=== PATIENT | male | born 1940 | race Caucasian/White ===

== ENCOUNTER 2019-05-12 11:40 | Emergency (ER) | payer OTHER, BC ==
[2019-05-12] MEDS ORDERED: NA CHLORIDE 0.9% 2,000 ML ONE (11:47)
[2019-05-12 12:04] LABS: Arterial Blood Carboxyhemoglob 0.8 % (0-1.5); Blood Gas Oxyhemoglobin 98.1 % (94-97); Blood O2 Saturation 99.4 % (92-98.5)
[2019-05-12 12:04] LABS: Absolute Lymphocytes (CBC) 0.8 K/uL (0.7-4.9); Basophils % 0.3 % (0-1.3); Hematocrit 39.6 % (39.6-49.0); Lymphocytes % 5.7 % (15.3-44.8); MPV 8.8 fL (7.6-11.3); RBC Red Blood Cell Count 4.21 M/uL (4.33-5.43)
[2019-05-12 12:08] LABS: Protime INR 0.91
[2019-05-12 12:22] LABS: ALT/SGPT 20 U/L (12-78); AST/SGOT 16 U/L (15-37); Alkaline Phosphatase 68 U/L (45-117); BUN Blood Urea Nitrogen 12 mg/dL (7-18); Bicarbonate 30 mmol/L (21-32); Bilirubin Direct 0.2 mg/dL (0-0.2); Bilirubin Total 0.8 mg/dL (0.2-1.0); CKMB Creatine Kinase MB 2.8 ng/mL (0.3-3.6); Creatine Phosphokinase 78 U/L (39-308); Glucose Level 147 mg/dL (74-106); Lipase 220 U/L (73-393); Potassium 3.6 mmol/L (3.5-5.1); Protein, Total 7.1 g/dL (6.4-8.2); Sodium Level 136 mmol/L (136-145); Troponin (Emerg Dept Use Only) < 0.02 ng/mL (0.0-0.045)
[2019-05-12 12:56] LABS: Urine Blood 3+ (NEG); Urine Glucose NEGATIVE (NEG); Urine Protein TRACE (NEG)
[2019-05-12 13:06] LABS: Urine Bacteria <20 /HPF (NONE SEEN); Urine Culture Reflex Order NOT NEEDED
--- NOTE | 2019-05-12 13:09 | RAD REPORT ---
EXAM DESCRIPTION: Alda Single View05/12/2019 12:23 pm CLINICAL HISTORY: Shortness of breath COMPARISON: none FINDINGS: Lungs are hyperaerated. The lungs appear clear of acute infiltrate. The heart is normal size IMPRESSION: Hyperaerated lungs without visualization acute abnormality
[2019-05-12 13:37] LABS: Blood Morphology Comment NOT SEEN (NOT SEEN); Platelet Estimate ADEQ; Urine White Blood Cell Casts OK
--- NOTE | 2019-05-12 16:27 | EKG ---
Test Date: 2019-05-12 Test Time: 12:15:46 Violin Mechanic: CRISTOFER MEASUREMENT RESULTS: Intervals: Rate: 87 AK: 164 QRSD: 72 QT: 348 QTc: 418 Morley: P: 62 AK: 164 QRS: 88 T: 64 INTERPRETIVE STATEMENTS: Sinus rhythm with marked sinus arrhythmia with frequent premature ventricular complexes Otherwise normal ECG No previous ECG available for comparison Electronically Signed On 05-12-19 16:25:35 CDT by Isma Schaefer
[2019-05-12] MEDS ORDERED: D5 0.45 NS 1,000 ML IV ONE (17:29)
--- NOTE | 2019-05-12 17:51 | ER ---
Nurse's Notes [facility] Name: Julian Henriquez Age: 78 yrs Sex: Male : 1940 Arrival Date: 05/12/2019 Time: 11:43 Bed 4 Private MD: Diagnosis: Acute respiratory failure with hypoxia Presentation: 05/12 11:39 Presenting complaint: EMS states: increased dyspnea that has been ongoing. Has been sv seen for neuromuscular disorders and they are trying to figure out what is going on with him. 25 lb weight loss since Oct. Pt was 70% RA and placed on 100% NRB O2 sat up to 88%. BP 138/76 HR-90 ETCO2-28. Transition of care: patient was not received from another setting of care. Onset of symptoms was 2018. Risk Assessment: Do you want to hurt yourself or someone else? Patient reports no desire to harm self or others. Initial Sepsis Screen: Does the patient meet any 2 criteria? RR > 20 per min. HR > 90 bpm. Yes Does the patient have a suspected source of infection? No. Patient's initial sepsis screen is negative. Care prior to arrival: IV initiated. 20 GA, in the right antecubital area, Oxygen administered. via a non-rebreather mask. 11:39 Method Of Arrival: EMS: [facility] sv 11:44 Acuity: TEODORA 1 sv Triage Assessment: 11:39 General: Appears in no apparent distress. comfortable, slender, emaciated, sv malnourished, cachectic, Behavior is calm, cooperative, appropriate for age. Pain: Denies pain. Neuro: Level of Consciousness is awake, alert, obeys commands, Oriented to person, place, time, situation, Weakness in bilateral arm(s) leg(s) Reports difficulty swallowing weakness. Cardiovascular: Patient's skin is warm and dry. Rhythm is sinus tachycardia Chest pain is denied. Respiratory: Reports shortness of breath at rest on exertion labored breathing Airway is patent Respiratory effort is even, unlabored, Respiratory pattern is regular, symmetrical, Onset: The symptoms/episode began/occurred gradually, the patient has severe shortness of breath. Derm: Skin is normal. Musculoskeletal: Range of motion: intact in all extremities. Historical: - Allergies: 12:15 No Known Allergies; sv - Home Meds: 12:15 eye drops [Active]; sv - PMHx: 12:15 prostate cancer; Glaucoma; sv - Immunization history:: Adult Immunizations up to date. - Social history:: Smoking status: Patient/guardian denies using tobacco. - Ebola Screening: : No symptoms or risks identified at this time. Screenin:17 Abuse screen: Denies threats or abuse. Denies injuries from another. Nutritional sv screening: On high calorie Difficulty chewing/swallowing? Yes Had unintentional weight loss of 10 pounds or more. Intervention for positive screen: ED Physician notified. Tuberculosis screening: No symptoms or risk factors identified. Fall Risk No fall in past 12 months (0 pts). Secondary diagnosis (15 points) impaired mobility, IV access (20 points). Ambulatory Aid- None/Bed Rest/Nurse Assist (0 pts). Gait- Weak (10 pts.). Mental Status- Oriented to own ability (0 pts). Total Ledbetter Fall Scale indicates High Risk Score (45 or more points). Fall prevention measures have been instituted. Side Rails Up X 2 Placed Close to Nursing Station Frequent Obs/Assessments Occuring Family Present and informed to notify staff if the need to leave the bedside As available patient and family educated on Fall Prevention Program and Strategies. Assessment: 11:43 Reassessment: Irena RT at bedside and pt placed on BIPAP. sv 12:00 Reassessment: Patient appears in no apparent distress at this time. Patient and/or sv family updated on plan of care and expected duration. Pain level reassessed. Patient is alert, oriented x 3, equal unlabored respirations, skin warm/dry/pink. 12:46 Reassessment: Patient appears in no apparent distress at this time. sg 14:00 Reassessment: Patient appears in no apparent distress at this time. Patient and/or sv family updated on plan of care and expected duration. Pain level reassessed. Patient is alert, oriented x 3, equal unlabored respirations, skin warm/dry/pink. 15:00 Reassessment: Patient appears in no apparent distress at this time. Patient and/or sv family updated on plan of care and expected duration. Pain level reassessed. Patient is alert, oriented x 3, equal unlabored respirations, skin warm/dry/pink. 16:10 Reassessment: Patient appears in no apparent distress at this time. Patient and/or sv family updated on plan of care and expected duration. Pain level reassessed. Patient is alert, oriented x 3, equal unlabored respirations, skin warm/dry/pink. Family at the bedside. Diego PALMA speaking with them and the pt. 17:20 Reassessment: Patient appears in no apparent distress at this time. Patient and/or sv family updated on plan of care and expected duration. Pain level reassessed. Patient is alert, oriented x 3, equal unlabored respirations, skin warm/dry/pink. 18:31 Reassessment: Patient appears in no apparent distress at this time. Patient and/or sv family updated on plan of care and expected duration. Pain level reassessed. Patient is alert, oriented x 3, equal unlabored respirations, skin warm/dry/pink. Report given to Parveen from EMS. Vital Signs: 11:42 BP 129 / 97; Pulse 107; Resp 28; Pulse Ox 76% on R/A; Pain 0/10; sv 11:46 Weight 51.26 kg; hb 11:50 Temp 97.9; sg 13:39 BP 136 / 101; Pulse 87 MON; Resp 26; Pulse Ox 95% on BiPAP; sv 14:07 BP 127 / 67; Pulse 78; Resp 28; Pulse Ox 95% on BiPAP; sv 14:59 BP 130 / 84; Pulse 77; Resp 20; Pulse Ox 99% on 35% BiPAP; sv 15:45 BP 95 / 57; Pulse 68 MON; Resp 18; Pulse Ox 99% on 35% BiPAP; sv 16:08 BP 130 / 88; Pulse 83; Resp 20; Pulse Ox 100% on 35% BiPAP; sv 17:35 BP 105 / 54; Pulse 72; Resp 20; Pulse Ox 100% on 35% BiPAP; sv 18:16 BP 97 / 68; Pulse 78 MON; Resp 16; Pulse Ox 100% on 35% BiPAP; sv 13:39 Sinus Rhythm with Occasional PVCs sv 15:45 Sinus Rhythm with Occasional PVCs sv 18:16 Sinus Rhythm with Occasional PVCs sv 14:59 rate-16, 14/7 sv ED Course: 11:39 Maintain EMS IV. Dressing intact. Site clean \T\ dry. Gauge \T\ site: 20G R AC. sv 11:40 bus monitor on. Pulse ox on. NIBP on. Head of bed elevated. sv 11:40 Initial lab(s) drawn, by ED staff, sent to lab. First set of blood cultures drawn by ED sv staff. Inserted saline lock: 20 gauge in left forearm, using aseptic technique. ,using aseptic technique. done by Rudolph ESCOTO Blood collected. 11:43 Patient arrived in ED. sv 11:43 Carolynn Kelley RN is Primary Nurse. sv 11:44 Triage completed. sv 11:44 Diego Holland PA is PHCP. jr8 11:44 Laurent Drummond MD is Attending Physician. jr8 11:45 Arm band placed on. sv 11:45 Patient has correct armband on for positive identification. Placed in gown. Bed in low sv position. Side rails up X2. 11:55 Second set of blood cultures drawn by ED staff. sv 12:22 X-ray completed. Portable x-ray completed in exam room. Patient tolerated procedure mh1 well. 12:26 Chest Single View XRAY In Process Unspecified. EDMS 12:43 Straight cath inserted, using sterile technique, 14 Fr. Specimen obtained. Returned sg jennifer urine. Patient tolerated well. 15:20 Repeat lab(s) drawn. by me, sent to lab. Lactate level sent. sg 18:16 No provider procedures requiring assistance completed. Patient transferred, IV remains sv in place. intact. 18:33 BIPAP Sent. sv Administered Medications: 12:00 Drug: NS 0.9% (30 ml/kg) 30 ml/kg Route: IV; Rate: bolus; Site: left forearm; sv 14:00 Follow up: Response: No adverse reaction; IV Status: Completed infusion; IV Intake: sv 1500ml 17:30 Drug: D5-1/2 NS 1000 ml Route: IV; Rate: 100 ml/hr; Site: left forearm; sg 18:33 Follow up: Response: No adverse reaction; IV Status: Infusion continued upon transfer sv Intake: 14:00 IV: 1500ml; Total: 1500ml. sv Output: 12:44 Urine: 100ml (Straight Cath); Total: 100ml. sg 15:15 Urine: 200ml (Voided); Total: 300ml. sg Outcome: 17:50 ER care complete, transfer ordered by . jr8 18:16 Transferred by ground EMS to [facility], Transfer form completed. sv X-rays sent w/ patient. Note: Report given to Miguel ESCOTO at [facility] 18:16 Condition: stable 18:16 Instructed on the need for transfer. 18:34 Patient left the ED. sv Signatures: Dispatcher [employer] EDCarolynn Hernandez RN RN Rudolph Rayo RN RN Bia Fenton 1 Diego Holland PA PA 8 Denae Donald RN RN Corrections: (The following items were deleted from the chart) 13:40 11:49 BP 129 / 97; Pulse 107bpm; Resp 28bpm; Pulse Ox 76% RA; Pain 0/10; sv sv 18:32 13:39 BP 136 / 101; Pulse 87bpm; Resp 26bpm; Pulse Ox 95% BiPAP; sv sv 18:32 15:45 BP 95 / 57; Pulse 68bpm; Resp 18bpm; Pulse Ox 99% 02 35% BiPAP; sv sv 18:32 18:16 BP 97 / 68; Pulse 78bpm; Resp 16bpm; Pulse Ox 100% 02 35% BiPAP; sv sv
--- NOTE | 2019-05-12 17:52 | EDPHYS ---
Physician Documentation [facility] Name: Julian Henriquez Age: 78 yrs Sex: Male : 1940 Arrival Date: 05/12/2019 Time: 11:43 Bed 4 Private MD: ED Physician Laurent Drummond HPI: 05/12 12:17 This 78 yrs old Male presents to ER via EMS with complaints of Breathing jr8 Difficulty. 12:17 The patient has shortness of breath at rest. Onset: The symptoms/episode began/occurred jr8 gradually, 2 day(s) ago, and became worse and became persistent. Duration: The symptoms are continuous. The patient's shortness of breath has no apparent modifying factors. Associated signs and symptoms: Pertinent positives: non-productive cough. Severity of symptoms: At their worst the symptoms were moderate in the emergency department the symptoms are unchanged. The patient has experienced similar episodes in the past, a few times. The patient has been recently seen by a physician:. Patient has been seen by [facility] for ongoing testing for concern for unknown neuromuscular condition. Stated that over the past year has been having slow decline which included numbness in feet, general weakness, trouble swallowing, trouble breathing, and loss of weight. Came to ED today for worsening of breathing . Historical: - Allergies: 12:15 No Known Allergies; sv - Home Meds: 12:15 eye drops [Active]; sv - PMHx: 12:15 prostate cancer; Glaucoma; sv - Immunization history:: Adult Immunizations up to date. - Social history:: Smoking status: Patient/guardian denies using tobacco. - Ebola Screening: : No symptoms or risks identified at this time. ROS: 15:33 Eyes: Negative for injury, pain, redness, and discharge, ENT: Negative for injury, jr8 pain, and discharge, Neck: Negative for injury, pain, and swelling, Cardiovascular: Negative for chest pain, palpitations, and edema, Abdomen/GI: Negative for abdominal pain, nausea, vomiting, diarrhea, and constipation, Back: Negative for injury and pain, MS/Extremity: Negative for injury and deformity, Skin: Negative for injury, rash, and discoloration, Neuro: Negative for headache, weakness, numbness, tingling, and seizure. 15:33 Respiratory: Positive for dyspnea on exertion, shortness of breath. Exam: 15:33 Eyes: Pupils equal round and reactive to light, extra-ocular motions intact. Lids and jr8 lashes normal. Conjunctiva and sclera are non-icteric and not injected. Cornea within normal limits. Periorbital areas with no swelling, redness, or edema. ENT: Nares patent. No nasal discharge, no septal abnormalities noted. Tympanic membranes are normal and external auditory canals are clear. Oropharynx with no redness, swelling, or masses, exudates, or evidence of obstruction, uvula midline. Mucous membranes moist. Neck: Trachea midline, no thyromegaly or masses palpated, and no cervical lymphadenopathy. Supple, full range of motion without nuchal rigidity, or vertebral point tenderness. No Meningismus. Cardiovascular: Regular rate and rhythm with a normal S1 and S2. No gallops, murmurs, or rubs. Normal PMI, no JVD. No pulse deficits. Abdomen/GI: Soft, non-tender, with normal bowel sounds. No distension or tympany. No guarding or rebound. No evidence of tenderness throughout. Back: No spinal tenderness. No costovertebral tenderness. Full range of motion. Skin: Warm, dry with normal turgor. Normal color with no rashes, no lesions, and no evidence of cellulitis. MS/ Extremity: Pulses equal, no cyanosis. Neurovascular intact. Full, normal range of motion. Neuro: Awake and alert, GCS 15, oriented to person, place, time, and situation. Cranial nerves II-XII grossly intact. Motor strength 5/5 in all extremities. Sensory grossly intact. Cerebellar exam normal. Normal gait. 15:33 Respiratory: mild respiratory distress is noted, Respirations: labored breathing, tachypnea, Breath sounds: rhonchi, that are mild, are heard in the right upper lobe, left upper lobe, left posterior upper lobe and right posterior upper lobe. Vital Signs: 11:42 BP 129 / 97; Pulse 107; Resp 28; Pulse Ox 76% on R/A; Pain 0/10; sv 11:46 Weight 51.26 kg; hb 11:50 Temp 97.9; sg 13:39 BP 136 / 101; Pulse 87 MON; Resp 26; Pulse Ox 95% on BiPAP; sv 14:07 BP 127 / 67; Pulse 78; Resp 28; Pulse Ox 95% on BiPAP; sv 14:59 BP 130 / 84; Pulse 77; Resp 20; Pulse Ox 99% on 35% BiPAP; sv 15:45 BP 95 / 57; Pulse 68 MON; Resp 18; Pulse Ox 99% on 35% BiPAP; sv 16:08 BP 130 / 88; Pulse 83; Resp 20; Pulse Ox 100% on 35% BiPAP; sv 17:35 BP 105 / 54; Pulse 72; Resp 20; Pulse Ox 100% on 35% BiPAP; sv 18:16 BP 97 / 68; Pulse 78 MON; Resp 16; Pulse Ox 100% on 35% BiPAP; sv 13:39 Sinus Rhythm with Occasional PVCs sv 15:45 Sinus Rhythm with Occasional PVCs sv 18:16 Sinus Rhythm with Occasional PVCs sv 14:59 rate-16, 14/7 sv MDM: 11:44 Patient medically screened. [facility] 15:33 Data reviewed: vital signs, nurses notes, lab test result(s), EKG, radiologic studies, jr8 plain films. Data interpreted: Pulse oximetry: on room air is 99 %. Interpretation: normal. Counseling: I had a detailed discussion with the patient and/or guardian regarding: the historical points, exam findings, and any diagnostic results supporting the discharge/admit diagnosis, lab results, radiology results. ED course: Called neurologist for second time to be paged to ED for consult. Awaiting call back . 16:12 ED course: was unable to reach patients own neurologist. Called [facility] for jr8 transfer. Accepted patient . 17:48 ED course: Patient will now be an ED to ED acceptance to [facility]. Awaiting charge jr8 nurse at that facility to accept . 05/12 11:45 Order name: ABG 05/12 11:45 Order name: Basic Metabolic Panel; Complete Time: 12:47 05/12 11:45 Order name: Blood Culture Adult (2) [facility] 05/12 11:45 Order name: CBC with Diff; Complete Time: 13:45 05/12 11:45 Order name: Ckmb; Complete Time: 12:47 [facility] 05/12 11:45 Order name: CPK; Complete Time: 12:47 [facility] 05/12 11:45 Order name: Lactate; Complete Time: 12:47 [facility] 05/12 11:45 Order name: LFT's; Complete Time: 12:47 05/12 11:45 Order name: Lipase; Complete Time: 12:47 05/12 11:45 Order name: Procalcitonin; Complete Time: 12:47 05/12 11:45 Order name: Protime (+inr); Complete Time: 12:11 05/12 11:45 Order name: Ptt, Activated; Complete Time: 12:11 05/12 11:45 Order name: Troponin (emerg Dept Use Only); Complete Time: 12:47 05/12 11:45 Order name: Urine Microscopic Only; Complete Time: 13:13 05/12 11:45 Order name: Chest Single View XRAY; Complete Time: 13:13 05/12 11:45 Order name: Accucheck; Complete Time: 12:10 05/12 11:45 Order name: Cardiac monitoring; Complete Time: 12:10 05/12 11:45 Order name: EKG - Nurse/Tech; Complete Time: 12:16 05/12 11:45 Order name: IV Saline Lock - Large Bore; Complete Time: 12:10 05/12 11:45 Order name: Labs collected and sent; Complete Time: 12:10 05/12 11:45 Order name: O2 Per Protocol; Complete Time: 12:10 05/12 11:45 Order name: O2 Sat Monitoring; Complete Time: 12:10 05/12 12:41 Order name: Glucose, Ancillary Testing; Complete Time: 12:47 EDMS 05/12 12:53 Order name: Urine Dipstick--Ancillary (enter results); Complete Time: 13:07 ms 05/12 13:38 Order name: CBC Smear Scan; Complete Time: 13:45 EDMS 05/12 15:51 Order name: Lactate Sepsis 2 HR Follow-up; Complete Time: 15:51 EDMS 05/12 16:12 Order name: EKG Electrocardiogram; Complete Time: 16:13 EDMS 08 18:10 Order name: BIPAP 05/12 11:45 Order name: Urine Dipstick-Ancillary (obtain specimen); Complete Time: 12:49 8 05/12 12:49 Order name: Straight Cath; Complete Time: 12:49 sg Administered Medications: 12:00 Drug: NS 0.9% (30 ml/kg) 30 ml/kg Route: IV; Rate: bolus; Site: left forearm; sv 14:00 Follow up: Response: No adverse reaction; IV Status: Completed infusion; IV Intake: sv 1500ml 17:30 Drug: D5-1/2 NS 1000 ml Route: IV; Rate: 100 ml/hr; Site: left forearm; sg 18:33 Follow up: Response: No adverse reaction; IV Status: Infusion continued upon transfer sv Disposition: 05/13 08:10 Co-signature as Attending Physician, Laurent Drummond MD I agree with the assessment and kdr plan of care. Disposition: 05/12/19 17:[address] [facility]. Diagnosis is Acute respiratory failure with hypoxia. - Reason for transfer: Higher level of care. - Accepting physician is [facility]. - Condition is Fair. - Problem is new. - Symptoms have improved. Signatures: Dispatcher [employer] Carolynn Lomas RN RN Rudolph Rayo RN RN sg Rittger, Kevin, MD MD [facility] Diego Holland PA PA jr8 Corrections: (The following items were deleted from the chart) 05/12 18:34 17:50 05/12/2019 17:[address] [facility]. Diagnosis is sv Acute respiratory failure with hypoxia. Reason for transfer: Higher level of care. Accepting physician is [facility]. Condition is Fair. Problem is new. Symptoms have improved. jr8
== END 2019-05-12 18:34 | disposition short-term general hospital (02) ==
LOC: ER 11:40
DX: J96.01 Acute respiratory failure with hypoxia (principal); Z85.46 Personal history of malignant neoplasm of prostate
CPT/HCPCS: 96365; 96361; 93005; 87040 ×2; 85025; 80048; 36415; 82550; 85610; 82962; 80076; 83605 ×2; 85730; 84484; 82553; 83690; 84145; 71045; 82805; 94660; 51702; 99291; 99292; 96366; J7030; 81003; 81015; 96360

== ENCOUNTER 2019-05-20 22:23 | Inpatient (IN) | payer OTHER, BC ==
--- OUTSIDE RECORDS SUMMARY | 2019-05-20 22:26 | XMS REPORT | Clinical Summary ---
:1940 Author Organization [facility] Address [address] [place] [address] Care Team Providers Name Role Phone Unavailable Primary Care Provider Unavailable Allergies No Known Allergies Medications Medication Sig Dispensed Refills Start Date End Date Status docusate sodium Take 1 capsule 10 capsule 0 05/18/2019 05/28/2019 Active (COLACE) 100 MG (100 mg total) capsule by mouth 2 (two) times daily for 10 days. polyethylene glycol Take 17 g by 14 each 0 05/18/2019 Active (GLYCOLAX) 17 gram mouth daily as packet needed. amoxicillin-clavulan Take 1 tablet 12 tablet 0 05/20/2019 05/26/2019 Active ate (AUGMENTIN) by mouth every 875-125 mg per 12 (twelve) tablet hours for 6 days. Lactobacillus Take 1 tablet 0 05/20/2019 05/26/2019 Active acidoph-L.bulgar by mouth 2 (FLORANEX) 1 million (two) times cell Tab per tablet daily for 6 days. timolol (BETIMOL) 1 drop 2 (two) 0 Suspended 0.5 % ophthalmic times daily. solution cetirizine (ZYRTEC) Take 10 mg by 0 Suspended 10 MG tablet mouth daily. 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 Monthly or less 05/13/2019 How many drinks containing alcohol do you have on a 1 or 2 05/13/2019 typical day when you are drinking? How often do you have six or more drinks on one Never 05/13/2019 occasion? Sex Assigned at Date Recorded Not on file Job Start Date Occupation Industry Not on file Not on file Not on file Travel History Travel Start Travel End No recent travel history available. Last Filed Vital Signs Vital Sign Reading Time Taken Blood Pressure 120/65 05/20/2019 4:00 PM CDT Pulse 83 05/20/2019 4:00 PM CDT Temperature 36.9 C (98.5 F) 05/20/2019 4:00 PM CDT Respiratory Rate 18 05/20/2019 4:00 PM CDT Oxygen Saturation 91% 05/20/2019 4:00 PM CDT Inhaled Oxygen Concentration 36% 05/19/2019 7:20 PM CDT Weight 52.6 kg (115 lb 14.4 oz) 05/20/2019 6:00 AM CDT Height 167.6 cm (5' 6") 05/12/2019 8:01 PM CDT Body Mass Index 18.71 05/20/2019 6:00 AM CDT Plan of Treatment Not on file Procedures The patient is currently admitted. The information in this section might not be complete until the patient is discharged. Procedure Name Priority Date/Time Associated Comments Diagnosis XR CHEST 1 VIEW LA 05/19/2019 10:16 Results for this PORTABLE/BEDSIDE AM CDT procedure are in the results section. CBC W/PLT COUNT & AUTO Routine 05/19/2019 4:17 Results for this DIFFERENTIAL AM CDT procedure are in the results section. BASIC METABOLIC PANEL Routine 05/19/2019 4:17 Results for this (7) AM CDT procedure are in the results section. CBC W/PLT COUNT & AUTO Routine 05/19/2019 4:17 Results for this DIFFERENTIAL AM CDT procedure are in the results section. POCT-GLUCOSE METER Routine 05/15/2019 5:13 Results for this PM CDT procedure are in the results section. XR CHEST 1 VIEW STAT 05/15/2019 1:05 Results for this PORTABLE/BEDSIDE AM CDT procedure are in the results section. POCT-GLUCOSE METER Routine 05/14/2019 5:03 Results for this PM CDT procedure are in the results section. CBC W/PLT COUNT & AUTO Routine 05/14/2019 4:22 Results for this DIFFERENTIAL AM CDT procedure are in the results section. BLOOD GAS, VENOUS Routine 05/14/2019 4:22 Results for this AM CDT procedure are in the results section. PHOSPHORUS Routine 05/14/2019 4:22 Results for this AM CDT procedure are in the results section. MAGNESIUM Routine 05/14/2019 4:22 Results for this AM CDT procedure are in the results section. BASIC METABOLIC PANEL Routine 05/14/2019 4:22 Results for this (7) AM CDT procedure are in the results section. CBC W/PLT COUNT & AUTO Routine 05/14/2019 4:22 Results for this DIFFERENTIAL AM CDT procedure are in the results section. XR CHEST 1 VIEW Routine 05/14/2019 3:11 Results for this PORTABLE/BEDSIDE AM CDT procedure are in the results section. XR ABDOMEN 1 VIEW Routine 05/13/2019 5:03 Results for this PM CDT procedure are in the results section. XR CHEST 1 VIEW Routine 05/13/2019 3:17 Results for this PORTABLE/BEDSIDE AM CDT procedure are in the results section. BLOOD GAS, ARTERIAL Routine 05/13/2019 2:18 Results for this AM CDT procedure are in the results section. URINALYSIS W/ Routine 05/13/2019 2:08 Results for this MICROSCOPIC AM CDT procedure are in the results section. CBC W/PLT COUNT & AUTO Routine 05/13/2019 1:53 Results for this DIFFERENTIAL AM CDT procedure are in the results section. BRINA TITER AND PATTERN Routine 05/13/2019 1:53 Results for this AM CDT procedure are in the results section. MAGNESIUM Add-On 05/13/2019 1:53 Results for this AM CDT procedure are in the results section. PHOSPHORUS Add-On 05/13/2019 1:53 Results for this AM CDT procedure are in the results section. BASIC METABOLIC PANEL Routine 05/13/2019 1:53 Results for this (7) AM CDT procedure are in the results section. CBC W/PLT COUNT & AUTO Routine 05/13/2019 1:53 Results for this DIFFERENTIAL AM CDT procedure are in the results section. ANTI-NUCLEAR ANTIBODY Routine 05/13/2019 1:53 Results for this (BRINA) AM CDT procedure are in the results section. TSH/FREE T4 IF Routine 05/13/2019 1:53 Results for this INDICATED AM CDT procedure are in the results section. HIV-1 ANTIGEN WITH Routine 05/13/2019 1:53 Results for this HIV-1/2 ANTIBODY AM CDT procedure are in the results section. IMMUNOGLOBULIN A (IGA) Routine 05/13/2019 1:53 Results for this AM CDT procedure are in the results section. CRITICAL CARE Routine 05/12/2019 9:03 Results for this PM CDT procedure are in the results section. after 05/19/2018 Results XR chest 1 view portable / bedside (05/19/2019 10:16 AM CDT)Only the most recent of4 resultswithin the time period is included. Specimen Narrative Performed At FINAL REPORT GE [facility] RAD, CHEST, 1 VIEW, NON DEPT INDICATION: cough COMPARISON: May 15, 2019 FINDINGS: Portable frontal view of the chest. IMPRESSION: Support Lines: None. Lungs and pleura: Developing consolidation in the right infrahilar region suggesting developing pneumonia. No pneumothorax. Heart and mediastinum: Stable contours. Additional findings: None. Signed: JR Garrison Robert MD Report Verified Date/Time:05/19/2019 10:33:37 Reading Location: [facility] Radiology Reading Room Procedure Note Interface, External Ris In - 05/19/2019 10:35 AM CDT FINAL REPORT RAD, CHEST, 1 VIEW, NON DEPT INDICATION: cough COMPARISON: May 15, 2019 FINDINGS: Portable frontal view of the chest. IMPRESSION: Support Lines: None. Lungs and pleura: Developing consolidation in the right infrahilar region suggesting developing pneumonia. No pneumothorax. Heart and mediastinum: Stable contours. Additional findings: None. Signed: JR Garrison Robert MD Report Verified Date/Time: 05/19/2019 10:33:37 Reading Location: [facility] Reading Room Performing Organization Address City/State/Zipcode Phone Number GE [facility] CBC with platelet count + automated diff (05/19/2019 4:17 AM CDT)Only the most recent of3 resultswithin the time period is included. WBC 12.0 (H) 3.5 - 10.5 K/L [facility] RBC 3.77 (L) 4.63 - 6.08 M/L [facility] Hemoglobin 12.0 (L) 13.7 - 17.5 GM/DL [facility] Hematocrit 36.6 (L) 40.1 - 51.0 % [facility] MCV 97.1 (H) 79.0 - 92.[address] [facility] MCH 31.8 25.7 - 32.[address] [facility] MCHC 32.8 32.3 - 36.5 GM/DL [facility] RDW 12.5 11.6 - 14.4 % [facility] Platelets 244 150 - 450 K/CU MM [facility] MPV 10.4 9.4 - 12.[address] [facility] nRBC 0 0 - 0 /[address] [facility] % Neutros 88 % [facility] % Lymphs 7 % [facility] % Monos 5 % [facility] % Eos 0 % [facility] % Baso 0 % [facility] # Neutros 10.56 (H) 1.78 - 5.38 K/L [facility] # Lymphs 0.78 (L) 1.32 - 3.57 K/L [facility] # Monos 0.57 0.30 - 0.82 K/L [facility] # Eos 0.04 0.04 - 0.54 K/L [facility] # Baso 0.03 0.01 - 0.08 K/L [facility] Immature 1 0 - 1 % [facility] Granulocytes-[facility] Specimen Blood Performing Organization Address City/State/Zipcode Phone Number [facility] [address] [place], [place] [phone] CENTER Basic Metabolic Panel (05/19/2019 4:17 AM CDT)Only the most recent of3 resultswithin the time period is included. Sodium 136 136 - 145 meq/L [facility] Potassium 4.0 3.5 - 5.1 meq/L [facility] Chloride 96 (L) 98 - 107 meq/L [facility] CO2 35 (H) 22 - 29 meq/L [facility] BUN 10 7 - 21 mg/dL [facility] Creatinine 0.56 (L) 0.57 - 1.25 mg/dL [facility] Glucose 92 70 - 105 mg/dL [facility] Calcium 10.0 8.4 - 10.2 mg/dL [facility] EGFR 141Comment: ESTIMATED GFR IS mL/min/1.73 sq m [facility] NOT ACCURATE CREATININE [facility] CENTER CLEARANCE IN PREDICTING GLOMERULAR FILTRATION RATE. ESTIMATED GFR IS NOT APPLICABLE FOR DIALYSIS PATIENTS. Specimen Blood Performing Organization Address City/State/Zipcode Phone Number [address] [address] CENTER POC-Glucose meter (05/15/2019 5:13 PM CDT)Only the most recent of2 resultswithin the time period is included. POC-Glucose Meter 103Comment: TESTED AT 70 - 110 mg/dL [facility] [address] [place] [address] [place] [address] Specimen Blood Performing Organization Address City/[facility]/Zipcode Phone Number [address] [address] CENTER Phosphorus (05/14/2019 4:22 AM CDT)Only the most recent of2 resultswithin the time period is included. Phosphorus 2.9 2.3 - 4.7 mg/dL [facility] Specimen Blood Performing Organization Address [facility] Phone Number [address] [address] CENTER Magnesium (05/14/2019 4:22 AM CDT)Only the most recent of2 resultswithin the time period is included. Magnesium 1.9 1.6 - 2.6 mg/dL [facility] Specimen Blood Performing Organization Address [facility] Phone Number [address] [address] [phone] CENTER Blood gas, venous (05/14/2019 4:22 AM CDT) pH, [place] 7.44 (H) 7.32 - 7.42 [facility] pCO2, [place] 41 41 - [address] [facility] pO2, [place] 117 (H) 25 - [address] [facility] O2 Sat, [place] 98.4 (H) 40.0 - 70.0 % [facility] HCO3, [place] 27 21 - 29 mmol/L [facility] Base Excess, [place] 2.5 -2.0 - 3.0 mmol/L [facility] Patient Temperature 36.[address] [facility] FIO2 30.0 % [facility] Specimen Blood Performing Organization Address [facility] Phone Number [address] [address] CENTER XR abdomen / KUB 1 view (05/13/2019 5:03 PM CDT) Specimen Narrative Performed At FINAL REPORT RIS Abdomen , one view History: Placement of feeding tube Comparison:none Findings: Bowel gas pattern is nonspecific.Feeding tube terminates in the juxtapyloric region. Impression: Feeding tube terminates in the juxtapyloric region. Signed: Wilber Ruiz MD Report Verified Date/Time:05/13/2019 20:09:14 Reading Location: [facility] Reading Room Procedure Note Interface, External Ris In - 05/13/2019 8:11 PM CDT FINAL REPORT Abdomen , one view History: Placement of feeding tube Comparison:none Findings: Bowel gas pattern is nonspecific. Feeding tube terminates in the juxtapyloric region. Impression: Feeding tube terminates in the juxtapyloric region. Signed: Wilber Ruiz MD Report Verified Date/Time: 05/13/2019 20:09:14 Reading Location: [facility] Reading Room Performing Organization Address City/State/Zipcode Phone Number [facility] Blood gas, arterial (05/13/2019 2:18 AM CDT) pH, Arterial 7.46 (H) 7.35 - 7.45 [facility] pCO2, Arterial 41 35 - [address] [facility] pO2, Arterial 271 (H) 80 - [address] [facility] O2 Sat, Arterial 99.7 (H) 96.0 - 97.0 % [facility] HCO3, Arterial 29 21 - 29 mmol/L [facility] Base Excess, Arterial 4.2 (H) -2.0 - 3.0 mmol/L [facility] Patient Temperature 36.[address] [facility] FIO2 60.0 % [facility] Specimen Blood, Arterial Performing Organization Address City/[facility] Corporation[facility] Phone Number [address] [address] [place] Urinalysis w/Microscopic (05/13/2019 2:08 AM CDT) Color, UA Yellow [facility] Clarity, UA Hazy [facility] Specific [place], UA 1.016 1.001 - 1.035 [facility] pH, UA 6.0 5.0 - 8.0 [facility] Protein, UA 20 mg/dL (A) Negative [facility] Glucose, UA Negative Negative [facility] Ketones, UA 40 mg/dL (A) Negative [facility] Bilirubin, UA Negative Negative [facility] Blood, UA Moderate (A) Negative [facility] Nitrite, UA Negative Negative [facility] Leukocytes, UA Small (A) Negative [facility] Urobilinogen, UA 0.2 0.2 - 1.0 mg/dL [facility] RBC, UA 84 /HPF [facility] WBC, UA 26 /HPF [facility] Mucus Moderate [facility] Specimen Source [facility] Specimen Urine Performing Organization Address City/[facility] Phone Number [address] [address] [place] TSH/Free T4 If Indicated (05/13/2019 1:53 AM CDT) TSH 1.75 0.35 - 4.94 uIU/mL [facility] Specimen Blood Performing Organization Address City/[facility]/Zipcode Phone Number [address] [address] [place] HIV-1 Antigen with HIV-1/2 Antibody (05/13/2019 1:53 AM CDT) HIV-1 Antigen with HIV 1&2 Nonreactive Nonreactive [facility] Specimen Blood Performing Organization Address City/[facility]/Zipcode Phone Number [address] [phone] [place] BRINA Titer & Pattern (05/13/2019 1:53 AM CDT) BRINA Titer 1:640 [facility] BRINA Pattern Homogeneous [facility] Specimen Blood Performing Organization Address [facility] Corporation[facility] Phone Number [address] [address] [phone] [place] Anti-Nuclear Antibody (BRINA) (05/13/2019 1:53 AM CDT) BRINA Positive (A) Negative [facility] Specimen Blood Narrative Performed At Test performed by IFA method. [facility] Performing Organization Address [facility] Phone Number [address] [phone] [place] Immunoglobulin A (IgA) (05/13/2019 1:53 AM CDT) IgA 70 63 - 484 mg/dL [facility] Specimen Blood Performing Organization Address [facility] Corporation[facility] Phone Number [address] [address] [place] CRITICAL CARE (05/12/2019 9:03 PM CDT) Narrative Performed At Lanette Sosa MD 05/16/20197:50 PM Critical Care Performed by: Lanette Sosa MD Authorized by: Jenna Granado MD Total critical care time: 35 minutes Critical care time was exclusive of separately billable procedures and treating other patients. Critical care was necessary to treat or prevent imminent or life-threatening deterioration of the following conditions: respiratory failure. Critical care was time spent personally by me on the following activities: discussions with primary provider, evaluation of patient's response to treatment, ordering and performing treatments and interventions, pulse oximetry, development of treatment plan with patient or surrogate, examination of patient, ordering and review of laboratory studies, re-evaluation of patient's condition, discussions with consultants, interpretation of cardiac output measurements, obtaining history from patient or surrogate, ordering and review of radiographic studies and review of old charts. after 05/19/2018 Insurance Payer Benefit Plan / Subscriber ID Type Phone Address Group MEDICARE MEDICARE A B xxxxxxxxxxx Medicare BLUE CROSS/BLUE [place]BS INDEMNITY [place] xxxxxxxxxxxx PPO [phone] [address] [place] [address] Advance Directives For more information, please contact:[address] [phone] Code Status Date Activated Date Inactivated Comments Partial Code 05/13/2019 4:42 PM This code status was determined by: Patient Drug Protocol After Arrest Occurs? Yes Mechanical Ventilation with Intubation? No Bag/Mask? No Internal/External Pacemaker? No Transfer to Critical Care? Yes Chest Compressions? No Defibrillation/Cardioversion? No Full Code 05/12/2019 10:29 PM 05/13/2019 4:42 PM This code status was determined by: Patient
--- OUTSIDE RECORDS SUMMARY | 2019-05-20 22:27 | XMS REPORT | Summary of Care ---
:1940 Author Organization [facility] [place] [address] Care Team Providers Name Role Phone Unavailable Primary Care Provider Unavailable Reason for Referral Radiology Services (Routine) Status Reason Specialty Diagnoses / Referred By Contact Referred To Contact Procedures Pending Radiology Diagnoses Neuropathy Myelopathy Cristiana Azar [place], Radiology Procedures MRI CERVICAL SPINE WO CONTRAST MD TRACIE [address] [address] Radiology Services (Routine) Status Reason Specialty Diagnoses / Referred By Contact Referred To Contact Procedures Pending Radiology Diagnoses Neuropathy Myelopathy Cristiana Azar [place], Radiology Procedures MRI BRAIN WO CONTRAST MD TRACIE [address] [address] Reason for Visit Reason Comments Extremity Weakness Encounter Details Date Type Department Care Team Description 05/10/2019 Office Visit [facility] Palma Ellis MD Extremity Weakness Medicine - Neurology [address] [place] [address] 9th [address] [place] [address] 9th Floor, [address] [phone] [place] [id number] [phone] Allergies No Known Allergiesdocumented as of this encounter (statuses as of 05/13/2019) Medications Medication Sig Dispensed Refills Start Date End Date Status timolol maleate INSTILL 1 DROP 3 03/24/2019 Active (TIMOPTIC) 0.5 % INTO RIGHT EYE 2 ophthalmic solution TIMES DAILY Cetirizine HCl (ZYRTEC Take by mouth. 0 Active OR) documented as of this encounter (statuses as of 05/13/2019) Active Problems No known active problemsdocumented as of this encounter (statuses as of 2018) Social History Tobacco Use Types Packs/Day Years Used Date Former Smoker Smokeless Tobacco: Never Used Comments: has smoked in 40 yrs Alcohol Use Drinks/Week oz/Week Comments Not Currently rarely Sex Assigned at Date Recorded Not on file Job Start Date Occupation Industry Not on file Not on file Not on file Travel History Travel Start Travel End No recent travel history available. documented as of this encounter Last Filed Vital Signs Vital Sign Reading Time Taken Comments Blood Pressure 112/75 05/10/2019 8:48 AM CDT Pulse 66 05/10/2019 8:48 AM CDT Temperature - - Respiratory Rate - - Oxygen Saturation - - Inhaled Oxygen Concentration - - Weight 50.8 kg (111 lb 14.4 oz) 05/10/2019 8:48 AM CDT Height 182.9 cm (6') 05/10/2019 8:48 AM CDT Body Mass Index 15.18 05/10/2019 8:48 AM CDT documented in this encounter Progress Notes Cristiana Azar MBBS, - 05/10/2019 9:00 AM CDT The patient was seen and examined in neuromuscular consultation. He has an at least 7 years historyof a slowly progressive sensory-motor dysfunction associated with profound weight loss and a recent onset dysphagia and possibly some breathing difficulties. The findings on the examination is indicative of a neuropathy but there is also bilateral Babinski sign and fasciculations in the arms. The patient has not had a comprehensive investigationin the past several years.Although a diagnosis of motor neuron disease is likely the EMG findings do not support this diagnosis. To investigate further anumber of laboratory test and imaging studies will be obtained. Depending on the result further recommendations to follow. Agree with the resident's notes. Follow-up visit after the results of the tests become available. Benita Espino Chief-Neuromuscular Diseases [facility] New Patient Visit - Dr. Ellis Reason for Visit: Generalized weakness Referred By: Self History of Present Illness: is a 78 y.o. male with PMH of prostate cancer under surveillance who is presenting with progressive generalized weakness. He states that his symptoms started about 7 years ago at age 71. The first symptoms he noted was that he had numbness in his bilateral big toes. Over the course of the next couple of years this numbness spread upwards almost up until his knees. At the age of about 74 he began to notice weakness in his legs. He states that he regularly ran 4 miles but it became increasingly difficult hence he decreased it to three miles. The weakness continued to worsen and at about age 76 he was unable to run but was able to walk independently. Since the last 1 year his daughter have noted that his decline has been more rapid. Last facundo he was able [place]. He has progressively become weak to the point now that he is unable to walk without support or a cane and is predominantly wheel chair bound. He states that the numbness has not spread beyond his knees and does not involve his upper extremities. He has not noted his muscles quivering and does not complain of any muscle cramps. Along with the above mentioned symptoms he also complains of difficulty swallowing. This started about six months ago. It is present with solids and liquids. He also states that he has noted that his voice has changed. His daughters state that previously his voice was a lot thicker and has become a lot more hoarse. He also states that he feels SOB and describes it as an inability to take a nice deep breath. He also endorses symptoms of constipation. Daughters have also noted hair loss on his legs. He does not complain of early satiety. He also has cold intolerance. He keeps the thermostat in his home at 80 and still needs to wear warm clothing. He does not wear dentures and does not use denture cream. He lives alone in [place] and was being managed by a neurologist there previously. 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 He states that he received 60 mg for a week which was then tapered over the course of the next few weeks. He has not triedany other therapies. He was diagnosed with prostate cancer in 2002. Initially was treated with brachy therapy. Had recurrence in 2007 and since then has been on surveillance. Did not receive any chemotherapeutic agents as a part of his therapy. He only recalls receiving one dose of hormonal therapy. He currently lives alone in [place] alone. His daughters [place] and have been trying to have him move in with them but he has not been agreeable to it. He was independent with ADLs and iADLs up until about 3 months ago. More recently he has needed help with things like grocery and cooking meals. He has a junior sales assistant that comes to the house three times a week. His diet is poor. Daughters state that he predominantly eats low fat yoghurt. He does not eat any beef. He does eat white meat such as chicken and fish. Consumption of fresh vegetables is also not adequate. Past Medical History: Past Medical History: Diagnosis Date Prostate cancer Past Surgical History: Past Surgical History: Procedure Laterality Date HX EYE SURGERY Current Medications: Cetirizine HCl (ZYRTEC OR) Take by mouth. timolol maleate (TIMOPTIC) 0.5 % ophthalmic solution INSTILL 1 DROP INTO RIGHT EYE 2 TIMES DAILY Allergies: No Known Allergies Social History: Social History Tobacco Use Smoking status: Former Smoker Smokeless tobacco: Never Used Tobacco comment: has smoked in 40 yrs Substance Use Topics Alcohol use: Not Currently Comment: rarely Drug use: Not on file Family History: Family History Problem Relation Name Age of Onset Hemachromatosis Cousin Neuropathy Neg Hx Review of Systems: Constitutional: no fatigue, no weight loss, no fevers/chills Eyes: no diplopia or visual blurring ENT: Difficulty swallowing Respiratory: no shortness of breath, no cough, no wheezing Cardio: SOB GI: Contipation : no frequency, urgency, incontinence Skin/Teg: no skin rashes, no itching Musculoskeletal: no joint pain, no muscle pain, no joint swelling Psychiatric: no depression or anxiety, no hallucinations, no SI/HI Neurological: as above Physical Examination: BP 112/75 (BP Location: right arm, Patient Position: Sitting, Cuff Size: regular ) | Pulse 66 | Ht 6' (1.829 m) | Wt 111 lb 14.4 oz (50.8 kg) | BMI 15.18 kg/ m Gen: no distress, pleasant HEENT: anicteric, MMM, neck supple Abd: soft, NTND Ext: palpable pulses Mental Status: Alert and oriented in place, person and time. Mood is normal and affect is congruous. Speech is fluent, non-dysarthric. Cranial Nerves: I- Not tested. II- Right cornea is opacified and pupil is not visible. Left pupil is 3 mm and reactive. III, IV, Extraocular muscles are intact. V-Facial sensation is normal. VII- No facial asymmetry is observed. Orbicularis oculi and dejan strength is normal. VIII- Hearing intact bilaterally. IX and X- Palate is symmetrical, uvula is midline. XI- Strength of sternocleidomastoids and trapezius bilaterally are 5/5. XII- Tongue is midline without fasciculations Motor: Significant muscle atrophy in all muscle groups. Tone is normal. Fasciculations noted in all muscle groups. UE Power Deltoids Biceps Triceps Wrist Ext Wrist Fl Finger Ext Finger Fl Right 4 4+ 4+ 4+ 4+ 4- 4- Left 4 4+ 4+ 4+ 4+ 4- 4- LE Power Hip Flex Knee Ext Knee Flex Dorsiflex Plantarflex Right 4 5 5 4 4- Left 4 5 5 4- 4+ Reflexes Biceps Triceps B'radialis Knee Ankle Toes Right 3+ 3+ 3+ 1+ 0 Extensor Left 3+ 3+ 3+ 1+ 0 Extensor Sensation: Decreased pin prick in the lower extremities up until the knee. Loss of vibration up until the knee. Loss of proprioception in the distal toes but intact in the upper extremities and at the ankle. Coordination: Finger to nose and heel to nicholson all normal Gait: Unable to walk without assistance. Poor foot clearance of off the ground. Investigations: EMG 04/28/2019 Findings of a moderate radiculoneuropathy, motor and sensory, severe in the legs and mild in the arms with axonal and demyelinating changes in the legs but not the arms. Ultrasound showed normal sized nerves with neurogenic changes in the legs and scattered proximal fasciculations in the arms and legs. There was no evidence of motor neuron disease on this study. ASSESSMENT: Julian Henriquez is a 78 y.o. male who is presenting for evaluation of generalized weakness. He has progressed from running 4 miles a day to being wheel chair dependant over the course of the last 7 years. His exam is notable for diffuse muscle atrophy, motor weakness which is more severe proximally and in the LEs, fasciculations and increased to preserved reflexes along with sensory loss in a lengthdependant pattern. 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 Given his finding of muscle atrophy, fasciculations and increased reflexes his clinical picture would be concerning for a motor neuron disease. The presence of sensory findings on exam though argues against this possible etiology. EMG is also not supportive of a diagnosis of motor neuron disease. Another diagnostic consideration could be a polyneuropathy such as CIDP given the pattern of his sensory loss and muscle weakness. The fact that his reflexes are preserved and toes are up going is atypical of this etiology. He has been trialed on steroids with no improvement though this was an inadequate trial in terms of dose and duration. A myelopathy is another possible consideration. Given his history of a poor diet a myelopathy secondary to nutritional deficiencies such as B12, copper or vitamin E needs to be worked up. At this time a myelopathy likely secondary to a nutritional deficiency is our top differential. If work up for this is negative then we will entertain the possibility of this being a polyneuropathy possibly CIDP and initiate further work up for it. Further work up would entail obtaining an LP to look at CSF protein. RECOMMENDATIONS: - MRI brain and C spine w/o contrast. - CBC with differential along with peripheral smear and differential along with a CMP. - SPEP, B12, MMA, Folate, Copper, Zine, Vitamin E, Hemoglobin A1c, - If above mentioned work up is negative, then would recommend obtaining an LP to look for an inflammatory neuropathy. The patient was interviewed and examined by Dr. Ellis who directed the plan of care. Once all the above mentioned work up is complete, please call the clinic to schedule an appointment. Signed: Cristiana Azar [facility] Neurology, PGY-4 05/10/2019 11:43 AM documented in this encounter Plan of Treatment Name Type Priority Associated Diagnoses Order Schedule MRI BRAIN WO CONTRAST Imaging Routine Neuropathy Expected: 05/17/2019, Myelopathy Expires: 12/09/2019 MRI CERVICAL SPINE WO Imaging Routine Neuropathy 1 Occurrences CONTRAST Myelopathy starting 05/13/2019 until 12/09/2019 CBC (INCLUDES DIFF/PLT) Lab Routine Neuropathy Ordered: 05/13/2019 WITH SMEAR REVIEW VITAMIN B12 Lab Routine Neuropathy Ordered: 05/13/2019 METHYLMALONIC ACID - Lab Routine Neuropathy Ordered: 05/13/2019 PLASMA (MGL) VITAMIN E Lab Routine Myelopathy Ordered: 05/13/2019 Neuropathy COPPER - FREE Lab Routine Myelopathy Ordered: 05/13/2019 Neuropathy ZINC Lab Routine Neuropathy Ordered: 05/13/2019 PROTEIN ELECTROPHORESIS Lab Routine Neuropathy Ordered: 05/13/2019 SERUM Myelopathy HEMOGLOBIN A1C Lab Routine Other specified Ordered: 05/13/2019 disorders of carbohydrate metabolism Neuropathy Myelopathy COMPREHENSIVE METABOLIC Lab Routine Neuropathy Ordered: 05/13/2019 PANEL FOLATE Lab Routine Neuropathy Ordered: 05/13/2019 Health Maintenance Due Date Last Done Comments MEDICARE AWV 1940 TETANUS SHOT (ADULT) 1956 BMI FOLLOW UP PLAN 1959 FALL SCREEN 2006 PNEUMOVAX >=65 (PPSV23) 2006 PREVNAR >=65 (PCV13) 2006 FLU VACCINE > 6 MONTHS 05/05/2019 documented as of this encounter Results Not on filedocumented in this encounter Visit Diagnoses Diagnosis Neuropathy - Primary Mononeuritis of unspecified site Myelopathy Unspecified disease of spinal cord Other specified disorders of carbohydrate metabolism Other myositis of hand, unspecified laterality documented in this encounter Insurance Payer Benefit Plan / Subscriber ID Effective Phone Address Type Group Dates MEDICARE MEDICARE PART A xxxxxxxxxxx 2006-Prese [address] Medicare & B - MEDICARE nt [id number] [place] [address] [facility] MEDICARE xxxxxxxxxxxx 2006-Prese [address] Medicare BLUE SHIELD SUPPLEMENT - nt [id number] [place] [address] [employer]AN - xxxxxxxxxxxx 2006-Prese [address] Indemnity BLUE SHI[employer] INDEMNITY - nt [id number] [place] [address] documented as of this encounter"
--- OUTSIDE RECORDS SUMMARY | 2019-05-20 22:27 | XMS REPORT ---
:1940 [facility] Address [address] [place] [address] Care Team Providers Name Role Phone LARS OJEDA Unavailable Unavailable Problems This patient has no known problems. Allergies, Adverse Reactions, Alerts This patient has no known allergies or adverse reactions. Medications This patient has no known medications. Results Test Description Test Time Test Comments Text Results Atomic Results Result Comments RAD, CHEST, 1 2019-05-19 Reason for FINAL REPORT PATIENT ID: VIEW, NON DEPT 10:33:00 exam:->coughShould this be [id number] RAD, CHEST, 1 performed at the VIEW, NON DEPT bedside?->Yes INDICATION: cough COMPARISON: May 15, 2019 FINDINGS: Portable frontal view of the chest. IMPRESSION: Support Lines: None. Lungs and pleura: Developing consolidation in the right infrahilar region suggesting developing pneumonia. No pneumothorax.Heart and mediastinum: Stable contours. Additional findings: None. Signed: JR Garrison Robert MDReport Verified Date/Time: 05/19/2019 10:33:37 Reading Location: [facility] Radiology Reading Room C METABOLIC PANEL 2019-05-19 06:22:00 Test Item Value Reference Range Comments SODIUM (BEAKER) (test 136 meq/L 136-145 xqam=159) POTASSIUM (BEAKER) (test 4.0 meq/L 3.5-5.1 zbao=077) CHLORIDE (BEAKER) (test 96 meq/L 98-107 dnsc=959) CO2 (BEAKER) (test 35 meq/L 22-29 sdsb=880) BLOOD UREA NITROGEN 10 mg/dL 7-21 (BEAKER) (test sdpp=975) CREATININE (BEAKER) (test 0.56 mg/dL 0.57-1.25 juea=639) GLUCOSE RANDOM (BEAKER) 92 mg/dL 70-105 (test jimk=686) CALCIUM (BEAKER) (test 10.0 mg/dL 8.4-10.2 ulbz=987) EGFR (BEAKER) (test 141 mL/min/1.73 sq m ESTIMATED GFR IS NOT lwbm=6809) ACCURATE CREATININE CLEARANCE IN PREDICTING GLOMERULAR FILTRATION RATE. ESTIMATED GFR IS NOT APPLICABLE FOR DIALYSIS PATIENTS. CBC W/PLT COUNT & AUTO [id number] 06:02:00 Test Item Value Reference Range Comments WHITE BLOOD CELL COUNT (BEAKER) (test dgzx=322) 12.0 K/ L 3.5-10.5 RED BLOOD CELL COUNT (BEAKER) (test ltpw=963) 3.77 M/ L 4.63-6.08 HEMOGLOBIN (BEAKER) (test ebqh=396) 12.0 GM/DL 13.7-17.5 HEMATOCRIT (BEAKER) (test wzbj=478) 36.6 % 40.1-51.0 MEAN CORPUSCULAR VOLUME (BEAKER) (test pqcn=005) 97.1 fL 79.0-92.2 MEAN CORPUSCULAR HEMOGLOBIN (BEAKER) (test 31.8 pg 25.7-32.2 jwnc=014) MEAN CORPUSCULAR HEMOGLOBIN CONC (BEAKER) (test 32.8 GM/DL 32.3-36.5 bjro=330) RED CELL DISTRIBUTION WIDTH (BEAKER) (test 12.5 % 11.6-14.4 oymp=434) PLATELET COUNT (BEAKER) (test rljg=354) 244 K/CU MM 150-450 MEAN PLATELET VOLUME (BEAKER) (test itqu=898) 10.4 fL 9.4-12.4 NUCLEATED RED BLOOD CELLS (BEAKER) (test 0 /100 WBC 0-0 gdfo=053) NEUTROPHILS RELATIVE PERCENT (BEAKER) (test 88 % zjvm=524) LYMPHOCYTES RELATIVE PERCENT (BEAKER) (test 7 % bkei=986) MONOCYTES RELATIVE PERCENT (BEAKER) (test 5 % wysk=267) EOSINOPHILS RELATIVE PERCENT (BEAKER) (test 0 % gkck=959) BASOPHILS RELATIVE PERCENT (BEAKER) (test 0 % owgp=630) NEUTROPHILS ABSOLUTE COUNT (BEAKER) (test 10.56 K/ L 1.78-5.38 jqwg=747) LYMPHOCYTES ABSOLUTE COUNT (BEAKER) (test 0.78 K/ L 1.32-3.57 ifze=573) MONOCYTES ABSOLUTE COUNT (BEAKER) (test 0.57 K/ L 0.30-0.82 wpbr=464) EOSINOPHILS ABSOLUTE COUNT (BEAKER) (test 0.04 K/ L 0.04-0.54 xyvq=766) BASOPHILS ABSOLUTE COUNT (BEAKER) (test 0.03 K/ L 0.01-0.08 sugz=540) IMMATURE GRANULOCYTES-RELATIVE PERCENT (BEAKER) 1 % 0-1 (test tecw=1312) POCT-GLUCOSE [id number] 17:21:00 Test Item Value Reference Range Comments POC-GLUCOSE METER (BEAKER) 103 mg/dL 70-110 TESTED AT [address] (test peyu=8382) [facility] [id number] RAD, CHEST, 1 VIEW, NON [id number] 01:29:00Reason for exam:->Sob, concern for aspirationShould this be performed at the bedside?->YesFINAL REPORT EXAMINATION: AP PORTABLE CHEST RADIOGRAPH CLINICAL INDICATION: Shortness of breath. Clinical concern for aspiration IMPRESSION: Compared with 05/14/2019. The lung volumes are large with apical radiolucency, nonspecific but can be associated with obstructive lung disease/ emphysema. Subtle streaky and reticular opacities are again noted in both lungs , similar to previous which may reflect atelectasis or scarring. An early pneumonia, sequela from aspiration or underlying mass lesion cannot be excluded. No evidence of pulmonary edema, large pleural effusion, pneumothorax or acute osseous abnormality. Tip of the feeding tube extends below the diaphragm and inferior margin of today's study. Signed: Ashly Salguero MDReport Verified Date/Time: 05/15/2019 01:29:51 ReadingLocation: [address] Reading Room Electronically signed by: ASHLY SALGUERO M.D. on08/2019 01:29 AMPOCT-GLUCOSE [id number] 20:48:00 Test Item Value Reference Range Comments POC-GLUCOSE METER (BEAKER) 132 mg/dL 70-110 TESTED AT [address] (test gdyz=9869) [facility] [address] [id number] 06:29:00 Test Item Value Reference Range Comments PHOSPHORUS (BEAKER) (test jxlp=794) 2.9 mg/dL 2.3-4.7 [id number] 06:29:00 Test Item Value Reference Range Comments MAGNESIUM (BEAKER) (test gqad=587) 1.9 mg/dL 1.6-2.6 BASIC METABOLIC [id number] 06:29:00 Test Item Value Reference Range Comments SODIUM (BEAKER) (test 136 meq/L 136-145 fclo=603) POTASSIUM (BEAKER) (test 3.8 meq/L 3.5-5.1 uvqk=761) CHLORIDE (BEAKER) (test 100 meq/L 98-107 derj=254) CO2 (BEAKER) (test 25 meq/L 22-29 rqtr=655) BLOOD UREA NITROGEN 13 mg/dL 7-21 (BEAKER) (test ubjp=307) CREATININE (BEAKER) (test 0.58 mg/dL 0.57-1.25 pyyu=445) GLUCOSE RANDOM (BEAKER) 85 mg/dL 70-105 (test wisw=274) CALCIUM (BEAKER) (test 9.7 mg/dL 8.4-10.2 kvus=540) EGFR (BEAKER) (test 136 mL/min/1.73 sq m ESTIMATED GFR IS NOT cunz=4458) ACCURATE CREATININE CLEARANCE IN PREDICTING GLOMERULAR FILTRATION RATE. ESTIMATED GFR IS NOT APPLICABLE FOR DIALYSIS PATIENTS. CBC W/PLT COUNT & AUTO [id number] 04:43:00 Test Item Value Reference Range Comments WHITE BLOOD CELL COUNT (BEAKER) (test utzl=256) 6.3 K/ L 3.5-10.5 RED BLOOD CELL COUNT (BEAKER) (test fcea=144) 3.36 M/ L 4.63-6.08 HEMOGLOBIN (BEAKER) (test tmvp=530) 10.7 GM/DL 13.7-17.5 HEMATOCRIT (BEAKER) (test kvum=241) 32.1 % 40.1-51.0 MEAN CORPUSCULAR VOLUME (BEAKER) (test brqs=795) 95.5 fL 79.0-92.2 MEAN CORPUSCULAR HEMOGLOBIN (BEAKER) (test 31.8 pg 25.7-32.2 icbc=102) MEAN CORPUSCULAR HEMOGLOBIN CONC (BEAKER) (test 33.3 GM/DL 32.3-36.5 usyy=695) RED CELL DISTRIBUTION WIDTH (BEAKER) (test 12.4 % 11.6-14.4 azfe=322) PLATELET COUNT (BEAKER) (test lxpk=922) 186 K/CU MM 150-450 MEAN PLATELET VOLUME (BEAKER) (test lgmb=226) 10.5 fL 9.4-12.4 NUCLEATED RED BLOOD CELLS (BEAKER) (test 0 /100 WBC 0-0 tusw=212) NEUTROPHILS RELATIVE PERCENT (BEAKER) (test 74 % styx=116) LYMPHOCYTES RELATIVE PERCENT (BEAKER) (test 15 % ddmu=684) MONOCYTES RELATIVE PERCENT (BEAKER) (test 7 % hxnv=185) EOSINOPHILS RELATIVE PERCENT (BEAKER) (test 3 % imea=627) BASOPHILS RELATIVE PERCENT (BEAKER) (test 1 % gbkb=211) NEUTROPHILS ABSOLUTE COUNT (BEAKER) (test 4.65 K/ L 1.78-5.38 ztgh=505) LYMPHOCYTES ABSOLUTE COUNT (BEAKER) (test 0.96 K/ L 1.32-3.57 qvbm=755) MONOCYTES ABSOLUTE COUNT (BEAKER) (test 0.46 K/ L 0.30-0.82 vjhw=163) EOSINOPHILS ABSOLUTE COUNT (BEAKER) (test 0.19 K/ L 0.04-0.54 ksnb=365) BASOPHILS ABSOLUTE COUNT (BEAKER) (test 0.03 K/ L 0.01-0.08 hvge=467) IMMATURE GRANULOCYTES-RELATIVE PERCENT (BEAKER) 1 % 0-1 (test gbzl=6949) BLOOD GAS, [id number] 04:41:00 Test Item Value Reference Range Comments PH VENOUS (BEAKER) (test irvp=338) 7.44 7.32-7.42 PCO2 VENOUS (BEAKER) (test epeg=802) 41 mmHg 41-51 PO2 VENOUS (BEAKER) (test pwkv=697) 117 mmHg 25-40 O2 SATURATION VENOUS (BEAKER) (test qqax=604) 98.4 % 40.0-70.0 HCO3 VENOUS (BEAKER) (test wlww=783) 27 mmol/L 21-29 BASE EXCESS VENOUS (BEAKER) (test wmvw=897) 2.5 mmol/L -2.0-3.0 PATIENT TEMPERATURE (BEAKER) (test cnvu=3509) 36.7 C FIO2 (BEAKER) (test myei=3606) 30.0 % RAD, CHEST, 1 VIEW, NON [id number] 04:35:00Reason for exam:->EXTREMITY WEAKNESSdecreased weakness bilateral lower extremities and weight loss 25lbs since October Should this be performed at the bedside?->YesFINAL REPORT EXAMINATION: AP PORTABLE CHEST RADIOGRAPH CLINICAL INDICATION: Feeding tube placement. Extremity weakness IMPRESSION: Compared with 05/13/2019 Tip of the new feeding tube extends below the diaphragm and inferior margin of today's study. Heart size is normal. Mediastinal contours are sharp, smooth and stable allowing for differences in technique and positioning. Lung volumes are relatively large. No definite evidence of new focal lung consolidation, pulmonary edema, pleural effusion pneumothorax or acute osseous mallet. Signed: Ashyl Salguero Verified Date/Time: 2018 04:35:49 Reading Location: [address] Reading Room RAD, ABDOMEN /KUB, 1 VIEW [id number] 20:09:00Reason for exam:->check corpack placementFINAL REPORT Abdomen , one view History: Placement of feeding tube Comparison:none Findings:Bowel gas pattern is nonspecific. Feeding tube terminates in the juxtapyloric region.Impression: Feeding tube terminates in the juxtapyloric region. Signed: Wilber Ruiz MDRphilippeort Verified Date/Time: 05/13/2019 20:09:14 Reading Location: [facility] Reading Room 08: 09 PMANTI-NUCLEAR ANTIBODY (BRINA)2019-05-13 14:31:00 Test Item Value Reference Range Comments ANTI-NUCLEAR ANTIBODY (BRINA) (BEAKER) (test Positive Negative aefa=028) Test performed by IFA method.BRINA TITER AND [id number] 14:31:00 Test Item Value Reference Range Comments BRINA TITER (BEAKER) (test dnyx=5072) :640 BRINA PATTERN (BEAKER) (test dgtc=9000) Homogeneous [id number] 09:36:00 Test Item Value Reference Range Comments MAGNESIUM (BEAKER) (test hdqz=081) 2.0 mg/dL 1.6-2.6 [id number] 09:36:00 Test Item Value Reference Range Comments PHOSPHORUS (BEAKER) (test cjsm=900) 3.2 mg/dL 2.3-4.7 RAD, CHEST, 1 VIEW, NON [id number] 04:10:00Reason for exam:->EXTREMITY WEAKNESSdecreased weakness bilateral lower extremities and weight loss 25lbs since October Should this be performed at the bedside?->YesFINAL REPORT EXAMINATION: AP PORTABLE CHEST RADIOGRAPH CLINICAL INDICATION: Weakness. IMPRESSION: No comparison studies are available. Lung volumes are relatively large and may reflect obstructive lung disease. No definite evidence of a discrete pneumonia, pulmonary edema, largepleural effusion, pneumothorax or acute osseous abnormality. The heart size is normal. Mediastinal contours are sharp and smooth. Signed: Ashly Salguero MDReport Verified Date/Time: 05/13/2019 04:10:08 Reading Location: [address] Reading Room Electronically signed by: ASHLY SALGUERO M.D. on 06/2019 04:10 AMTSH/FREE T4 IF [id number] 03:04:00 Test Item Value Reference Range Comments THYROID STIMULATING HORMONE (BEAKER) (test 1.75 uIU/mL 0.35-4.94 ikvn=269) HIV-1 ANTIGEN WITH HIV-1/2 [id number] 03:04:00 Test Item Value Reference Range Comments HIV-1 ANTIGEN WITH HIV 1\T\2 ANTIBODY (2) Nonreactive Nonreactive (BEAKER) (test hxde=7395) BASIC METABOLIC [id number] 03:00:00 Test Item Value Reference Range Comments SODIUM (BEAKER) (test 135 meq/L 136-145 tgbo=258) POTASSIUM (BEAKER) (test 3.7 meq/L 3.5-5.1 ipiw=975) CHLORIDE (BEAKER) (test 99 meq/L 98-107 hwus=051) CO2 (BEAKER) (test 28 meq/L 22-29 ubul=804) BLOOD UREA NITROGEN 9 mg/dL 7-21 (BEAKER) (test lsiw=564) CREATININE (BEAKER) (test 0.60 mg/dL 0.57-1.25 rjwj=597) GLUCOSE RANDOM (BEAKER) 104 mg/dL 70-105 (test inqh=963) CALCIUM (BEAKER) (test 9.6 mg/dL 8.4-10.2 sdtx=015) EGFR (BEAKER) (test 131 mL/min/1.73 sq m ESTIMATED GFR IS NOT duss=6918) ACCURATE CREATININE CLEARANCE IN PREDICTING GLOMERULAR FILTRATION RATE. ESTIMATED GFR IS NOT APPLICABLE FOR DIALYSIS PATIENTS. BLOOD GAS, [id number] 02:42:00 Test Item Value Reference Range Comments PH ARTERIAL (BEAKER) (test oafv=949) 7.46 7.35-7.45 PCO2 ARTERIAL (BEAKER) (test zajy=179) 41 mmHg 35-45 PO2 ARTERIAL (BEAKER) (test zadd=379) 271 mmHg 80-90 O2 SATURATION ARTERIAL (BEAKER) (test xepu=402) 99.7 % 96.0-97.0 HCO3 ARTERIAL (BEAKER) (test frbh=349) 29 mmol/L 21-29 BASE EXCESS ARTERIAL (BEAKER) (test bvmc=103) 4.2 mmol/L -2.0-3.0 PATIENT TEMPERATURE (BEAKER) (test zgjt=6504) 36.5 C FIO2 (BEAKER) (test ruqk=3732) 60.0 % IMMUNOGLOBULIN A (IGA)2019-05-13 02:42:00 Test Item Value Reference Range Comments IMMUNOGLOBULIN A (IGA) (BEAKER) (test bwtn=618) 70 mg/dL 63-484 URINALYSIS W/ [id number] 02:31:00 Test Item Value Reference Range Comments COLOR (BEAKER) (test zuis=284) Yellow CLARITY (BEAKER) (test icjb=138) Hazy SPECIFIC GRAVITY UA (BEAKER) (test pony=826) 1.016 1.001-1.035 PH UA (BEAKER) (test ydiu=137) 6.0 5.0-8.0 PROTEIN UA (BEAKER) (test zwax=259) 20 mg/dL Negative GLUCOSE UA (BEAKER) (test kvcl=129) Negative Negative KETONES UA (BEAKER) (test nnjk=833) 40 mg/dL Negative BILIRUBIN UA (BEAKER) (test qnem=462) Negative Negative BLOOD UA (BEAKER) (test bdwu=554) Moderate Negative NITRITE UA (BEAKER) (test jboa=240) Negative Negative LEUKOCYTE ESTERASE UA (BEAKER) (test ttye=554) Small Negative UROBILINOGEN UA (BEAKER) (test fiyf=770) 0.2 mg/dL 0.2-1.0 RBC UA (BEAKER) (test ygkt=419) 84 /HPF WBC UA (BEAKER) (test lcpr=028) 26 /HPF MUCUS (BEAKER) (test nofo=7353) Moderate SOURCE(BEAKER) (test ycyt=1958) CBC W/PLT COUNT & AUTO [id number] 02:29:00 Test Item Value Reference Range Comments WHITE BLOOD CELL COUNT (BEAKER) (test bcdr=023) 9.6 K/ L 3.5-10.5 RED BLOOD CELL COUNT (BEAKER) (test ffck=765) 3.43 M/ L 4.63-6.08 HEMOGLOBIN (BEAKER) (test tmpk=231) 10.8 GM/DL 13.7-17.5 HEMATOCRIT (BEAKER) (test tqqf=154) 33.0 % 40.1-51.0 MEAN CORPUSCULAR VOLUME (BEAKER) (test vayf=638) 96.2 fL 79.0-92.2 MEAN CORPUSCULAR HEMOGLOBIN (BEAKER) (test 31.5 pg 25.7-32.2 svoe=448) MEAN CORPUSCULAR HEMOGLOBIN CONC (BEAKER) (test 32.7 GM/DL 32.3-36.5 wtvo=187) RED CELL DISTRIBUTION WIDTH (BEAKER) (test 12.7 % 11.6-14.4 eulw=114) PLATELET COUNT (BEAKER) (test eiqj=693) 172 K/CU MM 150-450 MEAN PLATELET VOLUME (BEAKER) (test saqx=274) 10.8 fL 9.4-12.4 NUCLEATED RED BLOOD CELLS (BEAKER) (test 0 /100 WBC 0-0 lcal=509) NEUTROPHILS RELATIVE PERCENT (BEAKER) (test 82 % dqaq=419) LYMPHOCYTES RELATIVE PERCENT (BEAKER) (test 9 % zyvl=076) MONOCYTES RELATIVE PERCENT (BEAKER) (test 8 % yddm=679) EOSINOPHILS RELATIVE PERCENT (BEAKER) (test 1 % wrid=518) BASOPHILS RELATIVE PERCENT (BEAKER) (test 0 % oswc=278) NEUTROPHILS ABSOLUTE COUNT (BEAKER) (test 7.81 K/ L 1.78-5.38 kjyz=074) LYMPHOCYTES ABSOLUTE COUNT (BEAKER) (test 0.90 K/ L 1.32-3.57 iosl=994) MONOCYTES ABSOLUTE COUNT (BEAKER) (test 0.74 K/ L 0.30-0.82 wcfc=094) EOSINOPHILS ABSOLUTE COUNT (BEAKER) (test 0.08 K/ L 0.04-0.54 nthf=135) BASOPHILS ABSOLUTE COUNT (BEAKER) (test 0.02 K/ L 0.01-0.08 ibjb=884) IMMATURE GRANULOCYTES-RELATIVE PERCENT (BEAKER) 0 % 0-1 (test xapr=5946)
[2019-05-20 23:08] LABS: Absolute Lymphocytes (CBC) 0.5 K/uL (0.7-4.9); Basophils % 0.2 % (0-1.3); Hematocrit 41.8 % (39.6-49.0); MPV 8.3 fL (7.6-11.3); RBC Red Blood Cell Count 4.36 M/uL (4.33-5.43)
[2019-05-20 23:15] LABS: Protime INR 1.01
[2019-05-20 23:21] LABS: ALT/SGPT 40 U/L (12-78); AST/SGOT 22 U/L (15-37); Albumin 3.6 g/dL (3.4-5.0); Alkaline Phosphatase 71 U/L (45-117); BUN Blood Urea Nitrogen 17 mg/dL (7-18); Bicarbonate 37 mmol/L (21-32); Bilirubin Direct 0.2 mg/dL (0-0.2); Bilirubin Total 0.5 mg/dL (0.2-1.0); Creatine Phosphokinase 34 U/L (39-308); Glucose Level 123 mg/dL (74-106); Lipase 160 U/L (73-393); Magnesium 2.4 mg/dL (1.8-2.4); NT PRO-BNP 236 pg/mL (<450); Potassium 3.8 mmol/L (3.5-5.1); Protein, Total 7.5 g/dL (6.4-8.2); Sodium Level 140 mmol/L (136-145); Troponin (Emerg Dept Use Only) < 0.02 ng/mL (0.0-0.045)
[2019-05-20] MEDS ORDERED: AMOX TR/K CLAV 400MG CHEW TAB PO ONE (23:49)
[2019-05-20] MEDS ORDERED: AMOX/K CLAV 875 MG TAB ONE (23:57)
[2019-05-21 00:09] LABS: Blood Morphology Comment NOT SEEN (NOT SEEN); Platelet Estimate ADEQ; Urine White Blood Cell Casts OK
--- NOTE | 2019-05-21 02:10 | EDPHYS ---
Physician Documentation [facility] Name: Julian Henriquez Age: 78 yrs Sex: Male : 1940 Arrival Date: 05/20/2019 Time: 22:25 Bed 3 Private MD: ED Physician Nando Sawant HPI: 05/21 02:32 This 78 yrs old Male presents to ER via EMS with complaints of Breathing tw4 Difficulty. 02:32 The patient has shortness of breath at rest. Onset: The symptoms/episode began/occurred tw4 today. Duration: The symptoms are continuous. The patient's shortness of breath has no apparent modifying factors. Severity of symptoms: At their worst the symptoms were moderate in the emergency department the symptoms have improved mildly. The patient has not experienced similar symptoms in the past. Historical: - Allergies: 05/20 22:39 No Known Allergies; mg2 - Home Meds: 22:39 Augmentin 875-125 mg Oral tab 1 tab every 12 hours [Active]; docusate sodium 100 mg mg2 Oral cap 1 cap 2 times per day [Active]; Lactobacillus acidophilus oral oral [Active]; cetirizine 10 mg oral tab 1 tab once daily [Active]; timolol opthalmic [Active]; - PMHx: 22:39 Glaucoma; Prostate Cancer; aspiration pneumonia; neurological disorder; mg2 - Immunization history:: Flu vaccine is up to date. - Social history:: Smoking status: Patient/guardian denies using tobacco. - Ebola Screening: : No symptoms or risks identified at this time. ROS: 05/21 02:32 Constitutional: Negative for fever, chills, and weight loss, Eyes: Negative for injury, tw4 pain, redness, and discharge, Cardiovascular: Negative for chest pain, palpitations, and edema, Abdomen/GI: Negative for abdominal pain, nausea, vomiting, diarrhea, and constipation. Back: Negative for injury and pain, MS/Extremity: Negative for injury and deformity, Skin: Negative for injury, rash, and discoloration, Neuro: Negative for headache, weakness, numbness, tingling, and seizure. Respiratory: Positive for shortness of breath, Negative for cough, dyspnea on exertion, hemoptysis, orthopnea, pleurisy. Exam: 02:32 Head/Face: Normocephalic, atraumatic. Chest/axilla: Normal chest wall appearance and tw4 motion. Nontender with no deformity. No lesions are appreciated. 02:32 Cardiovascular: Regular rate and rhythm with a normal S1 and S2. No gallops, murmurs, or rubs. Normal PMI, no JVD. No pulse deficits. Respiratory: Lungs have equal breath sounds bilaterally, clear to auscultation and percussion. No rales, rhonchi or wheezes noted. No increased work of breathing, no retractions or nasal flaring. Abdomen/GI: Soft, non-tender, with normal bowel sounds. No distension or tympany. No guarding or rebound. No evidence of tenderness throughout. Back: No spinal tenderness. No costovertebral tenderness. Full range of motion. MS/ Extremity: Pulses equal, no cyanosis. Neurovascular intact. Full, normal range of motion. Neuro: Awake and alert, GCS 15, oriented to person, place, time, and situation. Cranial nerves II-XII grossly intact. Motor strength 5/5 in all extremities. Sensory grossly intact. Cerebellar exam normal. Normal gait. 02:32 Constitutional: The patient appears emaciated. Vital Signs: 05/20 22:30 BP 137 / 85; Pulse 92; Resp 24; Temp 98.3(TE); Pulse Ox 91% on 5 lpm NC; Weight 50.35 mg2 kg; Height 6 ft. 0 in. (182.88 cm); Pain 0/10; 05/21 00:09 BP 130 / 79; Pulse 101; Resp 20; Pulse Ox 89% on 4 lpm NC; mg2 00:59 BP 147 / 87; Pulse 88; Resp 25; Pulse Ox 93% on 50% Venturi mask; ak1 02:08 BP 134 / 84; Pulse 90; Resp 20; Temp 98.0; Pulse Ox 96% on 50% Venturi mask; Pain 0/10; ak1 03:00 BP 119 / 78; Pulse 91; Resp 18; Pulse Ox 97% on 50% Venturi mask; jb4 05/20 22:30 Body Mass Index 15.05 (50.35 kg, 182.88 cm) mg2 MDM: 05/20 22:28 Patient medically screened. tw4 05/21 02:40 Differential diagnosis: CHF exacerbation, Chronic Obstructive Pulmonary Disease tw4 pulmonary edema, reactive airway disease. Data reviewed: vital signs, nurses notes. Data interpreted: Pulse oximetry: Interpretation: normal. Counseling: I had a detailed discussion with the patient and/or guardian regarding: the historical points, exam findings, and any diagnostic results supporting the discharge/admit diagnosis, lab results, radiology results. 05/20 22:35 Order name: Blood Culture Adult (2) [facility] 05/20 22:35 Order name: BMP; Complete Time: 23:47 05/20 23:48 Interpretation: Normal except: CL 97; CO2 37; GLUC 123; CRE 0.53. 05/20 22:35 Order name: CBC with Diff 05/20 23:48 Interpretation: Normal except: WBC 15.1; ZION% 92.9; LYM% 3.0; NEUT A 14.0. 05/20 22:35 Order name: Ckmb; Complete Time: 23:47 [facility] 05/20 23:49 Interpretation: Within normal limits: CKMB 1.0. 05/20 22:35 Order name: CPK; Complete Time: 23:47 [facility] 05/20 23:48 Interpretation: Normal except: CPK 34. 05/20 22:35 Order name: D-Dimer; Complete Time: 23:47 [facility] 05/20 23:48 Interpretation: Normal except: D-DIMER 932. 05/20 22:35 Order name: Hepatic Function; Complete Time: 23:47 [facility] 05/20 23:49 Interpretation: Normal except: GLOB 3.9; A/G 0.9. 05/20 22:35 Order name: Lipase; Complete Time: 23:47 [facility] 05/20 23:49 Interpretation: Within normal limits: LIP 160. 05/20 22:35 Order name: Magnesium; Complete Time: 23:47 [facility] 05/20 23:49 Interpretation: Within normal limits: MG 2.4. 05/20 22:35 Order name: NT PRO-BNP; Complete Time: 23:47 05/20 23:49 Interpretation: Within normal limits: NT PRO-BNP 236. 05/20 22:35 Order name: PT-INR; Complete Time: 23:47 [facility] 05/20 23:49 Interpretation: Within normal limits: PT 11.9. 05/20 22:35 Order name: Ptt, Activated; Complete Time: 23:47 tw4 05/20 22:35 Order name: Troponin (emerg Dept Use Only); Complete Time: 23:47 tw4 05/20 23:49 Interpretation: Within normal limits: TROPED < 0.02. tw4 05/21 00:25 Order name: Glucose, Ancillary Testing [facility] 05/20 22:35 Order name: Call for Old EKG; Complete Time: 22:38 tw4 05/20 22:35 Order name: XRAY CXR (1 view) tw 05/20 22:35 Order name: EKG; Complete Time: 22:37 tw4 05/20 22:35 Order name: Cardiac monitoring; Complete Time: 22:39 tw4 05/20 22:35 Order name: EKG - Nurse/Tech; Complete Time: 22:40 tw4 05/20 22:35 Order name: IV Saline Lock; Complete Time: 22:40 tw4 05/20 22:35 Order name: Labs collected and sent; Complete Time: 22:40 tw 05/20 22:35 Order name: O2 Per Protocol; Complete Time: 22:40 tw4 05/20 22:35 Order name: O2 Sat Monitoring; Complete Time: 22:40 tw 05/21 00:30 Order name: CBC Smear Scan [facility] 05/21 02:08 Order name: Urine Dipstick--Ancillary (enter results) [facility] 05/21 03:24 Order name: CONS Physician Consult [facility] 05/21 03:24 Order name: CONS Physician Consult [facility] 05/21 03:24 Order name: NPO [facility] EC:32 Rate is 90 beats/min. Rhythm is regular. QRS [place] is Normal. [place] interval is normal. QRS tw4 interval is normal. QT interval is normal. No Q waves. T waves are Normal. No ST changes noted. Clinical impression: Normal ECG. Interpreted by me. Reviewed by me. Administered Medications: 00:30 Drug: Augmentin 875 mg Route: PO; mg2 01:59 Follow up: Response: No adverse reaction ak1 Point of Care Testing: Blood Glucose: 05/20 22:30 Blood Glucose: 130 mg/dL; mg2 Ranges: Critical Glucose Levels:Adult <50 mg/dl or >400 mg/dl <40 mg/dl or >180 mg/dl Disposition: 05/21/19 02:09 Hospitalization ordered by April Siu for Inpatient Admission. Preliminary diagnosis is Pneumonia due to other specified infectious organisms. - Bed requested for Telemetry/MedSurg (Inpatient). - Status is Inpatient Admission. ak1 - Condition is Fair. - Problem is an ongoing problem. - Symptoms are unchanged. UTI on Admission? No Signatures: Dispatcher [employer] EDMS Marline Munoz RN RN aa1 Leni Valdes RN RN ak1 Nando Sawant MD MD tw4 Ayanna Sandoval 2 Jet Villavicencio RN RN mg2 Christina Siddiqui ar5 Corrections: (The following items were deleted from the chart) 05/21 03:34 02:09 Hospitalization Ordered by April Siu MD for Inpatient Admission. Preliminary ar5 diagnosis is Pneumonia due to other specified infectious organisms. Bed requested for Telemetry/MedSurg (Inpatient). Status is Inpatient Admission. Condition is Fair. Problem is an ongoing problem. Symptoms are unchanged. UTI on Admission? No. tw4 04:03 03:34 05/21/2019 02:09 Hospitalization Ordered by April Siu MD for Inpatient ak1 Admission. Preliminary diagnosis is Pneumonia due to other specified infectious organisms. Bed requested for Telemetry/MedSurg (Inpatient). Status is Inpatient Admission. Condition is Fair. Problem is an ongoing problem. Symptoms are unchanged. UTI on Admission? No. ar5
--- NOTE | 2019-05-21 02:10 | ER ---
Nurse's Notes [facility] Name: Julian Henriquez Age: 78 yrs Sex: Male : 1940 Arrival Date: 05/20/2019 Time: 22:25 Bed 3 Private MD: Diagnosis: Pneumonia due to other specified infectious organisms Presentation: 05/20 22:26 Presenting complaint: EMS states: pt was released from [facility] this morning aa1 and began having difficulty breathing at the [facility]. Reports pt currently on Augmentin for aspiration PNA due to a neurological condition that affects his ability to swallow. Transition of care: patient was received from another setting of care (long-term care facility). Onset of symptoms was May 20, 2019. Risk Assessment: Do you want to hurt yourself or someone else? Patient reports no desire to harm self or others. Initial Sepsis Screen: Does the patient meet any 2 criteria? No. Patient's initial sepsis screen is negative. Does the patient have a suspected source of infection? Yes: Productive cough/pneumonia. Care prior to arrival: Glucose check: 112 Oxygen administered. via a non-rebreather mask. 22:26 Method Of Arrival: EMS: [facility] aa1 22:26 Acuity: TEODORA 2 aa1 Triage Assessment: 22:35 General: Appears comfortable, Behavior is calm, cooperative. Respiratory: Reports mg2 shortness of breath cough that is Onset: The symptoms/episode began/occurred gradually, the patient has mild shortness of breath. Historical: - Allergies: 22:39 No Known Allergies; mg2 - Home Meds: 22:39 Augmentin 875-125 mg Oral tab 1 tab every 12 hours [Active]; docusate sodium 100 mg mg2 Oral cap 1 cap 2 times per day [Active]; Lactobacillus acidophilus oral oral [Active]; cetirizine 10 mg oral tab 1 tab once daily [Active]; timolol opthalmic [Active]; - PMHx: 22:39 Glaucoma; Prostate Cancer; aspiration pneumonia; neurological disorder; mg2 - Immunization history:: Flu vaccine is up to date. - Social history:: Smoking status: Patient/guardian denies using tobacco. - Ebola Screening: : No symptoms or risks identified at this time. Screenin:28 Abuse screen: Denies threats or abuse. Denies injuries from another. Nutritional mg2 screening: No deficits noted. Tuberculosis screening: No symptoms or risk factors identified. Fall Risk IV access (20 points). Assessment: 22:34 General: Appears comfortable, Behavior is calm, cooperative. Pain: Denies pain. Neuro: mg2 Level of Consciousness is awake, alert, obeys commands, Oriented to person, place, time, situation. Cardiovascular: Capillary refill < 3 seconds Patient's skin is warm and dry. Respiratory: Airway is patent Respiratory effort is even, unlabored, GI: No signs and/or symptoms were reported involving the gastrointestinal system. : EENT: No signs and/or symptoms were reported regarding the EENT system. Derm: Skin is intact, is healthy with good turgor, Skin is pink, warm \T\ dry. Musculoskeletal: Circulation, motion, and sensation intact. Capillary refill < 3 seconds. 05/21 00:38 General: Appears comfortable, slender, well groomed, emaciated, Behavior is calm, ak1 cooperative. Pain: Denies pain. Neuro: Level of Consciousness is awake, alert, Oriented to person, place, time, situation, Weakness. Cardiovascular: Capillary refill < 3 seconds Patient's skin is warm and dry. Rhythm is regular. Respiratory: Reports cough that is productive, Airway is patent Respiratory effort is unlabored, Respiratory pattern is symmetrical, Breath sounds are coarse. GI: Abdomen is flat. Musculoskeletal: pt with generalized weakness. 00:40 Reassessment: pt using suction yanker to suction his own secretions. pt was placed on ak1 nonrebreather by Shaka Villavicencio RN, Tip with respiratory department contacted to place pt on Terri mask. 01:00 Reassessment: respiratory at bedside for suctioning. ak1 02:00 Reassessment: spoke with pt and daughters at length about pts condition and future fc needs. Pt states that he does not want a trach or feeding tube. When asked what he wanted us to do if his heart stopped pt stated he didn't want anything done. We then discuss need for 24 hr care. We talked about revisiting the rehab need, just going to [facility] for nursing care or hospice. Daughters tell pt they will do whatever he wants. Pt states that he does not feel he can do rehab at this time. Daughters state that pt was reviewed by multiple nursing homes and [facility]. They are refusing pt to return to [facility]. Asked if they would reconsider [facility]. They both stated yes they would. Even pt stated if he needed to he would go. Faina with [facility] notified and will have day person contact daughters later this am to discuss pts current condition. Daughter are aware. They also know that pt will be admitted for observation and that no neuro dr is available here. They all stated that they do not need that service at this time, that they only need him to get better from the pneumonia and to find placement for him. 02:07 General: Appears in no apparent distress. comfortable, Behavior is calm, cooperative, ak1 pt family at bedside. Charge nurse has been at bedside discussing plan of care and pt wishes. . 03:39 Reassessment: Patient appears in no apparent distress at this time. No changes from ak1 previously documented assessment. Patient and/or family updated on plan of care and expected duration. Pain level reassessed. pt appears more comfortable after suctioning and venti mask application. Patient states symptoms have improved. Vital Signs: 05/20 22:30 BP 137 / 85; Pulse 92; Resp 24; Temp 98.3(TE); Pulse Ox 91% on 5 lpm NC; Weight 50.35 mg2 kg; Height 6 ft. 0 in. (182.88 cm); Pain 0/10; 05/21 00:09 BP 130 / 79; Pulse 101; Resp 20; Pulse Ox 89% on 4 lpm NC; mg2 00:59 BP 147 / 87; Pulse 88; Resp 25; Pulse Ox 93% on 50% Venturi mask; ak1 02:08 BP 134 / 84; Pulse 90; Resp 20; Temp 98.0; Pulse Ox 96% on 50% Venturi mask; Pain 0/10; ak1 03:00 BP 119 / 78; Pulse 91; Resp 18; Pulse Ox 97% on 50% Venturi mask; jb4 05/20 22:30 Body Mass Index 15.05 (50.35 kg, 182.88 cm) mg2 ED Course: 05/20 22:25 Patient arrived in ED. aa1 22:28 Nando Sawant MD is Attending Physician. tw4 22:28 Jet Villavicencio RN is Primary Nurse. mg2 22:28 No provider procedures requiring assistance completed. Inserted saline lock: 20 gauge mg2 in left forearm, using aseptic technique. Blood collected. 22:31 Triage completed. aa1 22:34 Patient has correct armband on for positive identification. pvc monitor on. Pulse mg2 ox on. NIBP on. Door closed. 22:35 First set of blood cultures drawn by me. mg2 22:40 Arm band placed on. mg2 22:54 XRAY CXR (1 view) In Process Unspecified. EDMS 23:00 Second set of blood cultures drawn by me. mg2 05/21 02:05 April Siu MD is Hospitalizing Provider. tw4 03:39 Patient admitted, IV remains in place. ak1 Administered Medications: 00:30 Drug: Augmentin 875 mg Route: PO; mg2 01:59 Follow up: Response: No adverse reaction ak1 Point of Care Testing: Blood Glucose: 05/20 22:30 Blood Glucose: 130 mg/dL; mg2 Ranges: Outcome: 05/21 02:09 Decision to Hospitalize by Provider. tw4 03:38 Admitted to Tele accompanied by tech, family with patient, via stretcher, room 430, ak1 with oxygen, with chart, Report called to Gwendolyn RN 03:38 Condition: stable 03:38 Instructed on the need for admit, Demonstrated understanding of instructions. 04:03 Patient left the ED. ak1 Signatures: Dispatcher [employer] EDMS Marline Munoz RN RN aa1 Yisel Maravilla, RN RN Leni Taveras RN RN ak1 Maikel Christie, JEVON RN jbNando Benson MD MD tw4 Jet Villavicencio RN RN mg2 Corrections: (The following items were deleted from the chart) 05/20 23:06 22:35 First set of blood cultures drawn by me, Second set of blood cultures drawn mg2 mg2 23: 23:00 Second set of blood cultures drawn mg2 mg2
[2019-05-21 02:23] LABS: Urine Blood TRACE (NEG); Urine Glucose NEGATIVE (NEG); Urine Protein 1+ (NEG); Urine Specific Gravity 1.025 (1.005-1.030); Urine pH 5.5 (5.0-7.0)
[2019-05-21] MEDS ORDERED: ONDANSETRON 4 MG/2 ML VIAL IV PRN (03:06)
[2019-05-21] MEDS ORDERED: ACETAMINOPHEN 650MG/RECT SUPP RECT PRN (03:06)
[2019-05-21] MEDS: NA CHLORIDE 0.9% 1,000 ML IV SCH ×2 (04:57→17:10)
[2019-05-21] MEDS: Levofloxacin500mg IV 500 MG/100 ML BAG IV SCH (04:58)
[2019-05-21] MEDS: METHYLPREDNISOLONE 125 MG INJ IV SCH ×4 (05:00→23:58)
[2019-05-21] MEDS ORDERED: PIPERACIL/TAZO 3.375 GM VIAL IV ONE (05:52)
[2019-05-21] MEDS ORDERED: PIPER/TAZO/NS 3.375gm 3.375 GM/100 ML BAG IVPB SCH (06:00)
[2019-05-21] MEDS ORDERED: NA CHLORIDE 0.9% 100 ML IV ONE (06:02)
[2019-05-21] MEDS: ALBUTEROL 2.5 MG/3 ML NEB SOL NEB SCH ×3 (07:48→20:00)
[2019-05-21] MEDS: IPRATROPIUM BROM 0.5MG/2.5ML NEB SCH ×3 (07:48→20:00)
--- NOTE | 2019-05-21 08:23 | P.HP ---
Certification for Inpatient Patient admitted to: Inpatient With expected LOS: >2 Midnights Patient will require the following post-hospital care: None Practitioner: I am a practitioner with admitting privileges, knowledge of patient current condition, hospital course, and medical plan of care. Services: Services provided to patient in accordance with Admission requirements found in Title 42 Section 412.3 of the Code of Federal Regulations Patient History Date of Service: 05/21/19 Reason for admission: Aspiration pneumonia History of Present Illness: Patient is a 78-year-old gentleman has a history of neuromuscular disorder. Unknown etiology as to what has caused this disorder. Her he has been ruled out for [place], myasthenia gravis, and multiple other disorders. He was at [facility] for over 1 week without a diagnosis. They were scheduling to do and MRI of the brain and neck. This was not completed because patient required sedation. Patient had an EMG and nerve conduction studies performed. These revealed significant reduction in nerve conduction velocities. Patient was discharged yesterday to a snf. Patient was diagnosed with a pneumonia yesterday prior to discharge. Patient was started on antibiotics. However, patient has not been feeling well since arriving at the snf for an hour ago. Patient was sent to our hospital for further evaluation. I had a long talk with family regarding transfer to a tertiary care facility. Family did not want to get transferred. Patient wanted to get treated for the pneumonia at our facility as well. Patient is a DNR, and family does not want trach or a PEG tube. They would consider a Dobbhoff feeding tube. Allergies No Known Allergies Allergy (Unverified 05/21/19 04:15) Home Medications: Timolol Maleate 1 drop RIGHT EYE BID 05/21/19 - Past Medical/Surgical History Has patient received pneumonia vaccine in the past: Yes Diabetic: No -: Neuromuscular disorder Past Surgical History: Patient denies surgical history - Family History Father Family History: Reviewed- Non-Contributory - Social History Smoking Status: Former smoker Alcohol use: No CD- Drugs: No Caffeine use: No Place of Residence: [facility] Review of Systems 10-point ROS is otherwise unremarkable Physical Examination - Vital Signs Temperature: 99.2 F Blood Pressure: 137/76 Pulse: 88 Respirations: 16 Pulse Ox (%): 93 - Physical Exam General: Alert, Oriented x3, Mild distress HEENT: Atraumatic, PERRLA, Mucous membr. moist/pink, EOMI, Sclerae nonicteric Neck: Supple, 2+ carotid pulse no bruit, No LAD, Without JVD or thyroid abnormality Respiratory: Clear to auscultation bilaterally, Normal air movement Cardiovascular: Regular rate/rhythm, Normal S1 S2, No murmurs Gastrointestinal: Normal bowel sounds, Soft and benign, Non-distended, No tenderness Musculoskeletal: No clubbing, No swelling, No tenderness Integumentary: No rashes Neurological: Normal speech, Normal tone, Sensation intact, Cranial nerves 3-12 intact, Abnormal gait, Abnormal strength, Abnormal affect Lymphatics: No axilla or inguinal lymphadenopathy - Studies Laboratory Data (last 24 hrs) 05/20/19 22:35: PT 11.9, INR 1.01, APTT 30.9 05/20/19 22:35: WBC 15.1 H, Hgb 13.8, Hct 41.8, Plt Count 272 05/20/19 22:35: Sodium 140, Potassium 3.8, BUN 17, Creatinine 0.53 L, Glucose 123 H, Magnesium 2.4, Total Bilirubin 0.5, AST 22, ALT 40, Alkaline Phosphatase 71, Lipase 160 Assessment & Plan - Problems (Diagnosis) (1) Aspiration pneumonia Current Visit: Yes Status: Acute (2) Neuromuscular disease Current Visit: Yes Status: Acute (3) Dysphagia Current Visit: Yes Status: Acute (4) Weakness Current Visit: Yes Status: Acute (5) Leukocytosis Current Visit: Yes Status: Acute - Plan Plan: 1. Continue with IV antibiotics 2. Awaiting sputum and blood culture; procalcitonin level 3. Repeat chest x-ray in AM 4. Will order CT scan of the chest if pneumonia is not improving 5. Continue with nebs as needed 6. DNR 7. O2 per protocol 8. Continue with gentle hydration 9. Repeat labs including CBC and renal function in a.m. 10. Pulmonary consultation 11. GI and DVT prophylaxis Discharge Plan: Home Plan to discharge in: Greater than 2 days - Advance Directives Does patient have a Living Will: No Does patient have a Durable POA for Healthcare: No - Code Status/Comfort Care Code Status Assessed: Yes Code Status: Full Code Critical Care: No Time Spent Managing PTS Care (In Minutes): 40
[2019-05-21] MEDS: PIPER/TAZO/NS 3.375gm 3.375 GM/100 ML BAG IVPB SCH ×2 (08:48→17:10)
[2019-05-21] MEDS ORDERED: ENOXAPARIN 40 MG/0.4 ML SQ SCH ×2 (09:00)
--- NOTE | 2019-05-21 09:08 | EKG ---
Test Date: 2019-05-20 Test Time: 22:22:46 Dip Lube Operator: SUDHEER MEASUREMENT RESULTS: Intervals: Rate: 90 RI: 168 QRSD: 82 QT: 336 QTc: 411 [place]: P: 57 RI: 168 QRS: 72 T: 72 INTERPRETIVE STATEMENTS: Normal sinus rhythm Normal ECG Compared to ECG 05/12/2019 12:15:46 Sinus arrhythmia no longer present Ventricular premature complex(es) no longer present Electronically Signed On 05-21-19 09:07:41 CDT by Isma Schaefer
--- NOTE | 2019-05-21 10:44 | P.PN ---
Subjective Date of Service: 05/22/19 (Hospitalist) Chief Complaint: Respiratory distress Patient is 78 years of age with progressive muscular disease etiology unknown he has had extensive workup done at the [facility] in [place] according to the daughter he has rapidly deteriorated in the past 6 months patient was a former runner admitted with a slight respiratory distress he has no problem eating regular full would apart from in the leafy vegetables patient was hypoxic white count was mildly elevated Review of Systems General: Weakness Respiratory: Shortness of Breath Physical Examination - Vital Signs Temperature: 99.2 F Blood Pressure: 137/76 Pulse: 88 Respirations: 16 Pulse Ox (%): 93 - Physical Exam General: Alert, Moderate distress Respiratory: Clear to auscultation bilaterally, Diminished Cardiovascular: No edema, Normal S1 S2 - Studies Laboratory Data (last 24 hrs) 05/20/19 22:35: PT 11.9, INR 1.01, APTT 30.9 05/20/19 22:35: WBC 15.1 H, Hgb 13.8, Hct 41.8, Plt Count 272 05/20/19 22:35: Sodium 140, Potassium 3.8, BUN 17, Creatinine 0.53 L, Glucose 123 H, Magnesium 2.4, Total Bilirubin 0.5, AST 22, ALT 40, Alkaline Phosphatase 71, Lipase 160 Assessment & Plan - Problems (Diagnosis) (1) Respiratory failure Current Visit: Yes Status: Acute Plan: Patient is 78 years of age has progressive neuro muscular disease etiology and non despite extensive workup was unable to do an MRI he in [place] he is rapidly deteriorated currently DNR patient is hypoxic border some ABGs the benefit from noninvasive ventilation white count is mildly elevated chest x-ray abnormal chemistries reviewed he is high risk for thromboembolism chest x-ray shows some interstitial changes I have anti coagulated him as refused the PEG tube and endotracheal intubation Qualifiers: Chronicity: acute on chronic
[2019-05-21 11:26] LABS: Arterial Blood Carboxyhemoglob 1.3 % (0-1.5); Blood Gas Oxyhemoglobin 89.1 % (94-97); Blood O2 Saturation 90.6 % (92-98.5)
--- NOTE | 2019-05-21 12:05 | RAD REPORT ---
EXAM DESCRIPTION: RAD - Chest Single View - 05/20/2019 10:54 pm CLINICAL HISTORY: DYSPNEA Chest pain. COMPARISON: Chest Single View dated 05/12/2019 FINDINGS: Portable technique limits examination quality. The lungs are mildly emphysematous with poorly defined linear opacities in both lung bases, slightly greater on the right. This most likely represents atelectasis although early infiltrate or aspiration is not ruled out. The heart is normal in size with a tortuous thoracic aorta.
[2019-05-21] MEDS: ENOXAPARIN 40 MG/0.4 ML SQ SCH (20:04)
[2019-05-21] MEDS: ENSURE PUDDING 4 OZ CUP PO SCH (20:04)
[2019-05-21] MEDS ORDERED: TIMOLOL MALEATE 0.5% OPTH 5 ML BTL OPTH SCH (21:00)
[2019-05-21] MEDS ORDERED: TIMOLOL MALEATE 0.5% OPTH 5 ML BTL RIGHT EYE SCH (21:00)
[2019-05-22] MEDS: ALBUTEROL 2.5 MG/3 ML NEB SOL NEB SCH ×4 (02:00→20:00)
[2019-05-22] MEDS: IPRATROPIUM BROM 0.5MG/2.5ML NEB SCH ×4 (02:00→20:00)
[2019-05-22] MEDS: METHYLPREDNISOLONE 125 MG INJ IV SCH (05:27)
[2019-05-22] MEDS: NA CHLORIDE 0.9% 1,000 ML IV SCH (05:35)
[2019-05-22 06:10] LABS: ALT/SGPT 32 U/L (12-78); AST/SGOT 13 U/L (15-37); Albumin 3.1 g/dL (3.4-5.0); Alkaline Phosphatase 58 U/L (45-117); BUN Blood Urea Nitrogen 24 mg/dL (7-18); Bicarbonate 40 mmol/L (21-32); Bilirubin Total 0.4 mg/dL (0.2-1.0); Glucose Level 126 mg/dL (74-106); Magnesium 2.4 mg/dL (1.8-2.4); Phosphorus 2.7 mg/dL (2.5-4.9); Potassium 3.7 mmol/L (3.5-5.1); Protein, Total 6.7 g/dL (6.4-8.2); Sodium Level 143 mmol/L (136-145)
[2019-05-22 06:25] LABS: Absolute Lymphocytes (CBC) 0.2 K/uL (0.7-4.9); Lymphocytes % 2.6 % (15.3-44.8); MPV 8.5 fL (7.6-11.3); RBC Red Blood Cell Count 3.76 M/uL (4.33-5.43)
[2019-05-22] MEDS: ENSURE PUDDING 4 OZ CUP PO SCH ×2 (08:47→20:58)
[2019-05-22] MEDS: ENOXAPARIN 40 MG/0.4 ML SQ SCH (08:48)
[2019-05-22] MEDS: Levofloxacin500mg IV 500 MG/100 ML BAG IV SCH (08:48)
[2019-05-22] MEDS ORDERED: POTASSIUM 25 MEQ EFFERV TAB PO ONE (09:00)
[2019-05-22] MEDS ORDERED: ENOXAPARIN 40 MG/0.4 ML SQ SCH (09:00)
--- NOTE | 2019-05-22 09:00 | RAD REPORT ---
EXAM DESCRIPTION: Alda Single View05/22/2019 5:50 am CLINICAL HISTORY: Chest pain COMPARISON: May 20 FINDINGS: Right basilar opacities without significant change. Mild left lung opacities suspected. Lungs are hyperaerated. Heart is borderline enlarged. IMPRESSION: No significant change in the bilateral pulmonary opacities, right greater than left con sistent with pneumonia
--- NOTE | 2019-05-22 09:16 | P.PN ---
Subjective Date of Service: 05/22/19 (Hospitalist) Chief Complaint: Respiratory failure Subjective: No new changes Patient is hypoxic hypercapnic according to the daughters he has been having some hallucinations very weak unable to speak Review of Systems is unable to be obtained Physical Examination - Vital Signs Temperature: 99.2 F Blood Pressure: 137/76 Pulse: 88 Respirations: 16 Pulse Ox (%): 93 - Physical Exam General: Alert, Mild distress Respiratory: Clear to auscultation bilaterally Cardiovascular: No edema, Regular rate/rhythm Assessment & Plan - Problems (Diagnosis) (1) Respiratory failure Current Visit: Yes Status: Acute Plan: Patient is hypoxic hypercapnic will qualify for a noninvasive ventilator discuss with the daughter due to rapid decline in the agree with hospice care chest x-ray possible right lower lobe infiltrate Dc levofloxacin continue with Zosyn Dc steroids add IV thymine patient is eating and drinking white count has declined cultures negative he is at risk for thromboembolism of started him on some Eliquis lower extremity Doppler patient is unable to lie down he is eating and drinking Qualifiers: Chronicity: acute on chronic Plan to discharge in: 48 Hours
[2019-05-22] MEDS: APIXABAN 5 MG TABLET PO SCH ×2 (09:57→20:57)
[2019-05-22] MEDS ORDERED: THIAMINE 200 MG/2 ML INJ IVP SCH (10:00)
[2019-05-22] MEDS: PIPER/TAZO/NS 3.375gm 3.375 GM/100 ML BAG IVPB SCH ×3 (10:00→17:31)
[2019-05-22 11:32] LABS: Blood Morphology Comment NOT SEEN (NOT SEEN); Platelet Estimate ADEQ; Urine White Blood Cell Casts OK
--- NOTE | 2019-05-22 16:07 | RAD REPORT ---
EXAM DESCRIPTION: USExtrem Venous W Compress Bil05/22/2019 3:29 pm CLINICAL HISTORY: Bilateral leg swelling COMPARISON: none FINDINGS: The common femoral, superficial femoral, popliteal and posterior tibial veins bilaterally are compressible and demonstrate augmentation. Doppler demonstrates good flow. IMPRESSION: No evidence of deep venous thrombosis involving either lower extremity.
[2019-05-23] MEDS: PIPER/TAZO/NS 3.375gm 3.375 GM/100 ML BAG IVPB SCH (00:16)
[2019-05-23] MEDS: NA CHLORIDE 0.9% 1,000 ML IV SCH (00:17)
[2019-05-23] MEDS: IPRATROPIUM BROM 0.5MG/2.5ML NEB SCH ×2 (02:00→08:00)
[2019-05-23] MEDS: ALBUTEROL 2.5 MG/3 ML NEB SOL NEB SCH ×2 (02:00→08:00)
[2019-05-23] MEDS: ENSURE PUDDING 4 OZ CUP PO SCH (09:00)
[2019-05-23] MEDS ORDERED: IPRATROPIUM BROM 0.5MG/2.5ML NEB PRN (09:16)
[2019-05-23] MEDS ORDERED: ALBUTEROL 2.5 MG/3 ML NEB SOL NEB PRN (09:16)
--- NOTE | 2019-05-23 16:22 | P.DS ---
Admission Date: 05/21/19 Discharge Date: 05/23/19 Primary Care Provider: Unknown Disposition: HOSPICE-MEDICAL FACILITY Discharge Condition: CRITICAL Reason for Admission: Respiratory failure Consultations: Pulmonary-Dr. Douglas Procedures: CXR: FINDINGS: Right basilar opacities without significant change. Mild left lung opacities suspected. Lungs are hyperaerated. Heart is borderline enlarged. IMPRESSION: No significant change in the bilateral pulmonary opacities, right greater than left consistent with pneumonia Venous doppler: FINDINGS: The common femoral, superficial femoral, popliteal and posterior tibial veins bilaterally are compressible and demonstrate augmentation. Doppler demonstrates good flow. IMPRESSION: No evidence of deep venous thrombosis involving either lower extremity. 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 Patient has been seen in [facility], this included extensive work up to evaluate neuromuscular disorder. All tests have been unremarkable. Patient has been ruled out for Guillain-Denver, myasthenia gravis, ALS. Patient had been discharged yesterday to the alf. Patient had been diagnosed with pneumonia prior to discharge. He was started on antibiotic therapy. Upon reaching the alf, after an hr he start to have fatigue, shortness of breath. Patient was seen in the emergency room. Patient found to have acute respiratory failure. Patient was admitted for further evaluation. Family did not want patient to be transferred back to [facility]. Hospital Course: Patient presented with acute respiratory failure secondary to bilateral pneumonia likely aspiration related. This was complicated with the patient having idiopathic neuromuscular disease with dysphagia, weakness and muscle atrophy. Patient also severely malnourished. Patient was recently seen in [facility] to workup neuro muscular disease. ALS, myasthenia gravis, Guillain-Denver has been ruled out. Etiology still unknown. Patient was recently hospitalized at [facility]. Prior to discharge to alf patient was diagnosed with pneumonia. After being in the alf for 1 hr, the patient became more fatigued and short of breath. He was brought to the ER for evaluation. Patient found to have acute respiratory failure. Patient treated for respiratory failure and pneumonia. Patient required BiPAP. No significant proven was made. Patient seen by pulmonology. Care discussed at length with family. Advanced directives address in detail as well. Family very realistic concerning his prognosis. Patient has poor prognosis at this time. Patient and family wishes to pursue hospice. Inpatient hospice has been arranged. Patient is do not resuscitate. Antibiotics and other medications have been discontinued. Will continue with comfort measures. Further medications can be done by inpatient hospice. Vital Signs/Physical Exam: Temp Pulse Resp BP Pulse Ox 97.0 F 86 20 143/77 H 91 05/23/19 08:00 05/23/19 08:00 05/23/19 08:00 05/23/19 08:00 05/23/19 08:00 General: Other (Patient obtunded) Neck: Supple Respiratory: Diminished (Diminished breast sounds bilateral. Poor air movement bilateral) Cardiovascular: Normal pulses Gastrointestinal: Normal bowel sounds, Non-distended Laboratory Data at Discharge: WBC 8.6 K/uL (4.3-10.9) D 05/22/19 05:26 Hgb 12.2 g/dL (13.6-17.9) L 05/22/19 05:26 Hct 36.0 % (39.6-49.0) L 05/22/19 05:26 Plt Count 273 K/uL (152-406) 05/22/19 05:26 PT 11.9 SECONDS (9.5-12.5) 05/20/19 22:35 INR 1.01 05/20/19 22:35 APTT 30.9 SECONDS (24.3-36.9) 05/20/19 22:35 Sodium 143 mmol/L (136-145) 05/22/19 05:26 Potassium 3.7 mmol/L (3.5-5.1) 05/22/19 05:26 BUN 24 mg/dL (7-18) H 05/22/19 05:26 Creatinine 0.48 mg/dL (0.55-1.3) L 05/22/19 05:26 Glucose 126 mg/dL (74-106) H 05/22/19 05:26 Phosphorus 2.7 mg/dL (2.5-4.9) 05/22/19 05:26 Magnesium 2.4 mg/dL (1.8-2.4) 05/22/19 05:26 Total Bilirubin 0.4 mg/dL (0.2-1.0) 05/22/19 05:26 AST 13 U/L (15-37) L 05/22/19 05:26 ALT 32 U/L (12-78) 05/22/19 05:26 Alkaline Phosphatase 58 U/L (45-117) 05/22/19 05:26 Lipase 160 U/L (73-393) 05/20/19 22:35 Home Medications: Timolol Maleate 1 drop RIGHT EYE BID 05/21/19 Patient Discharge Instructions: Patient will be enter inpatient hospice. Comfort measures only. Diet: comfort feeding. Activity: Bedrest Time spent managing pt's care (in minutes): 55
== END 2019-05-23 15:14 | disposition hospice, inpatient (51) | DRG 177 ==
LOC: ER 22:23 → ERHOLD 05-21 03:07 → 4TH 05-21 03:49
PROVIDERS: ADMIT Hospitalist; ATTEND Family Medicine
PROC: 5A09357 Assistance with Respiratory Ventilation, Less than 24 Consecutive Hours, Continuous Positive Airway Pressure (ICD-10-PCS; principal; 2019-05-21)
DX: J69.0 Pneumonitis due to inhalation of food and vomit (principal); J96.22 Acute and chronic respiratory failure with hypercapnia; J96.21 Acute and chronic respiratory failure with hypoxia; E43 Unspecified severe protein-calorie malnutrition; Z68.1 Body mass index [BMI] 19.9 or less, adult; G70.9 Myoneural disorder, unspecified; R13.10 Dysphagia, unspecified; R53.1 Weakness; Z66 Do not resuscitate; Z87.891 Personal history of nicotine dependence
CPT/HCPCS: 36415; 71045; 80048; 80053; 80076; 81003; 82550; 82553; 82805; 82962; 83605; 83690; 83735; 83880; 84100; 84484; 85025; 85379; 85610; 85730; 87040; 87070; 87205; 93005; 93970; 94640; 94660; 94760; 99285; J1650; J2543; J2930; J3411; J7030

== ENCOUNTER 2019-05-23 15:18 | Inpatient (IN) | payer BC, OTHER ==
--- OUTSIDE RECORDS SUMMARY | 2019-05-23 15:25 | XMS REPORT ---
:1940 [facility] Address [address] [place] [address] Dr. [address] [place] [address] Care Team Providers Name Role Phone LARS [...] VIEW, NON DEPT 10:33:00 exam:->coughShould this be [phone] RAD, CHEST, 1 performed at the VIEW, NON DEPT bedside?->Yes INDICATION: cough COMPARISON: May 15, 2019 FINDINGS: Portable frontal view of the chest. IMPRESSION: Support Lines: None. Lungs and pleura: Developing consolidation in the right infrahilar region suggesting developing pneumonia. No pneumothorax.Heart and mediastinum: Stable contours. Additional findings: None. Signed: JR Garrison Robert MDReport Verified Date/Time: 05/19/2019 10:33:37 Reading Location: [facility] Radiology Reading Room C METABOLIC PANEL 2019-05-19 06:22:00 Test Item Value Reference Range Comments SODIUM (BEAKER) (test 136 meq/L 136-145 gqsi=772) POTASSIUM (BEAKER) (test 4.0 meq/L 3.5-5.1 hzrp=881) CHLORIDE (BEAKER) (test 96 meq/L 98-107 xmoa=911) CO2 (BEAKER) (test 35 meq/L 22-29 iuse=306) BLOOD UREA NITROGEN 10 mg/dL 7-21 (BEAKER) (test uhvz=229) CREATININE (BEAKER) (test 0.56 mg/dL 0.57-1.25 seyx=023) GLUCOSE RANDOM (BEAKER) 92 mg/dL 70-105 (test bxxw=375) CALCIUM (BEAKER) (test 10.0 mg/dL 8.4-10.2 ufvc=253) EGFR (BEAKER) (test 141 mL/min/1.73 sq m ESTIMATED GFR IS NOT kjdw=5390) ACCURATE CREATININE CLEARANCE IN PREDICTING GLOMERULAR FILTRATION RATE. ESTIMATED GFR IS NOT APPLICABLE FOR DIALYSIS PATIENTS. CBC W/PLT COUNT & AUTO [id number] 06:02:00 Test Item Value Reference Range Comments WHITE BLOOD CELL COUNT (BEAKER) (test rvdy=003) 12.0 K/ L 3.5-10.5 RED BLOOD CELL COUNT (BEAKER) (test chdt=503) 3.77 M/ L 4.63-6.08 HEMOGLOBIN (BEAKER) (test sqcj=593) 12.0 GM/DL 13.7-17.5 HEMATOCRIT (BEAKER) (test dxpi=395) 36.6 % 40.1-51.0 MEAN CORPUSCULAR VOLUME (BEAKER) (test tlmx=805) 97.1 fL 79.0-92.2 MEAN CORPUSCULAR HEMOGLOBIN (BEAKER) (test 31.8 pg 25.7-32.2 resy=392) MEAN CORPUSCULAR HEMOGLOBIN CONC (BEAKER) (test 32.8 GM/DL 32.3-36.5 aawl=709) RED CELL DISTRIBUTION WIDTH (BEAKER) (test 12.5 % 11.6-14.4 qunp=005) PLATELET COUNT (BEAKER) (test uhgp=110) 244 K/CU MM 150-450 MEAN PLATELET VOLUME (BEAKER) (test kayc=669) 10.4 fL 9.4-12.4 NUCLEATED RED BLOOD CELLS (BEAKER) (test 0 /100 WBC 0-0 trem=075) NEUTROPHILS RELATIVE PERCENT (BEAKER) (test 88 % egqq=643) LYMPHOCYTES RELATIVE PERCENT (BEAKER) (test 7 % vpbx=510) MONOCYTES RELATIVE PERCENT (BEAKER) (test 5 % sqsy=745) EOSINOPHILS RELATIVE PERCENT (BEAKER) (test 0 % phyp=066) BASOPHILS RELATIVE PERCENT (BEAKER) (test 0 % xvwf=083) NEUTROPHILS ABSOLUTE COUNT (BEAKER) (test 10.56 K/ L 1.78-5.38 gxhm=766) LYMPHOCYTES ABSOLUTE COUNT (BEAKER) (test 0.78 K/ L 1.32-3.57 hzsp=220) MONOCYTES ABSOLUTE COUNT (BEAKER) (test 0.57 K/ L 0.30-0.82 mfll=763) EOSINOPHILS ABSOLUTE COUNT (BEAKER) (test 0.04 K/ L 0.04-0.54 yzap=264) BASOPHILS ABSOLUTE COUNT (BEAKER) (test 0.03 K/ L 0.01-0.08 rccg=032) IMMATURE GRANULOCYTES-RELATIVE PERCENT (BEAKER) 1 % 0-1 (test ulei=3208) POCT-GLUCOSE [id number] 17:21:00 Test Item Value Reference Range Comments POC-GLUCOSE METER (BEAKER) 103 mg/dL 70-110 TESTED AT [address] (test avhr=5457) [place] [address] RAD, CHEST, 1 VIEW, NON [id number] 01:29:00Reason for exam:->Sob, concern for aspirationShould this [...] Salguero MDReport Verified Date/Time: 05/15/2019 01:29:51 ReadingLocation: [address] Reading Room Electronically signed by: ASHLY SALGUERO M.D. on08/2019 01:29 AMPOCT-GLUCOSE [id number] 20:48:00 Test Item Value Reference Range Comments POC-GLUCOSE METER (BEAKER) 132 mg/dL 70-110 TESTED AT [address] (test oljo=6527) [place] [address] [id number] 06:29:00 Test Item Value Reference Range Comments PHOSPHORUS (BEAKER) (test iqxj=193) 2.9 mg/dL 2.3-4.7 [id number] 06:29:00 Test Item Value Reference Range Comments MAGNESIUM (BEAKER) (test luww=664) 1.9 mg/dL 1.6-2.6 BASIC METABOLIC [id number] 06:29:00 Test Item Value Reference Range Comments SODIUM (BEAKER) (test 136 meq/L 136-145 mpom=062) POTASSIUM (BEAKER) (test 3.8 meq/L 3.5-5.1 tsrj=793) CHLORIDE (BEAKER) (test 100 meq/L 98-107 teqz=844) CO2 (BEAKER) (test 25 meq/L 22-29 wyoc=075) BLOOD UREA NITROGEN 13 mg/dL 7-21 (BEAKER) (test evfr=160) CREATININE (BEAKER) (test 0.58 mg/dL 0.57-1.25 hkgc=948) GLUCOSE RANDOM (BEAKER) 85 mg/dL 70-105 (test njij=183) CALCIUM (BEAKER) (test 9.7 mg/dL 8.4-10.2 keoo=962) EGFR (BEAKER) (test 136 mL/min/1.73 sq m ESTIMATED GFR IS NOT mskg=0363) ACCURATE CREATININE CLEARANCE IN PREDICTING GLOMERULAR FILTRATION RATE. ESTIMATED GFR IS NOT APPLICABLE FOR DIALYSIS PATIENTS. CBC W/PLT COUNT & AUTO [id number] 04:43:00 Test Item Value Reference Range Comments WHITE BLOOD CELL COUNT (BEAKER) (test rumk=472) 6.3 K/ L 3.5-10.5 RED BLOOD CELL COUNT (BEAKER) (test zlcf=527) 3.36 M/ L 4.63-6.08 HEMOGLOBIN (BEAKER) (test mpqq=704) 10.7 GM/DL 13.7-17.5 HEMATOCRIT (BEAKER) (test yzzi=977) 32.1 % 40.1-51.0 MEAN CORPUSCULAR VOLUME (BEAKER) (test jtli=662) 95.5 fL 79.0-92.2 MEAN CORPUSCULAR HEMOGLOBIN (BEAKER) (test 31.8 pg 25.7-32.2 gvdz=660) MEAN CORPUSCULAR HEMOGLOBIN CONC (BEAKER) (test 33.3 GM/DL 32.3-36.5 zrlo=795) RED CELL DISTRIBUTION WIDTH (BEAKER) (test 12.4 % 11.6-14.4 xghc=242) PLATELET COUNT (BEAKER) (test tskn=764) 186 K/CU MM 150-450 MEAN PLATELET VOLUME (BEAKER) (test holo=372) 10.5 fL 9.4-12.4 NUCLEATED RED BLOOD CELLS (BEAKER) (test 0 /100 WBC 0-0 sxkh=318) NEUTROPHILS RELATIVE PERCENT (BEAKER) (test 74 % rdcu=625) LYMPHOCYTES RELATIVE PERCENT (BEAKER) (test 15 % wuni=320) MONOCYTES RELATIVE PERCENT (BEAKER) (test 7 % tvbi=034) EOSINOPHILS RELATIVE PERCENT (BEAKER) (test 3 % saro=445) BASOPHILS RELATIVE PERCENT (BEAKER) (test 1 % uneq=760) NEUTROPHILS ABSOLUTE COUNT (BEAKER) (test 4.65 K/ L 1.78-5.38 mhnc=611) LYMPHOCYTES ABSOLUTE COUNT (BEAKER) (test 0.96 K/ L 1.32-3.57 dbrl=226) MONOCYTES ABSOLUTE COUNT (BEAKER) (test 0.46 K/ L 0.30-0.82 uieb=927) EOSINOPHILS ABSOLUTE COUNT (BEAKER) (test 0.19 K/ L 0.04-0.54 lauz=763) BASOPHILS ABSOLUTE COUNT (BEAKER) (test 0.03 K/ L 0.01-0.08 pfzh=253) IMMATURE GRANULOCYTES-RELATIVE PERCENT (BEAKER) 1 % 0-1 (test qrcl=6246) BLOOD GAS, [id number] 04:41:00 Test Item Value Reference Range Comments PH VENOUS (BEAKER) (test lhmh=757) 7.44 7.32-7.42 PCO2 VENOUS (BEAKER) (test wtel=337) 41 mmHg 41-51 PO2 VENOUS (BEAKER) (test gieg=840) 117 mmHg 25-40 O2 SATURATION VENOUS (BEAKER) (test aqlv=612) 98.4 % 40.0-70.0 HCO3 VENOUS (BEAKER) (test fcfk=677) 27 mmol/L 21-29 BASE EXCESS VENOUS (BEAKER) (test jkgv=160) 2.5 mmol/L -2.0-3.0 PATIENT TEMPERATURE (BEAKER) (test xiui=7369) 36.7 C FIO2 (BEAKER) (test hlir=4784) 30.0 % RAD, CHEST, 1 VIEW, NON [id number] 04:35:00Reason for exam:->EXTREMITY WEAKNESSdecreased weakness bilateral lower [...] effusion pneumothorax or acute osseous mallet. Signed: Ashly Salguero Verified Date/Time: 2018 04:35:49 Reading Location: [address] Reading Room RAD, ABDOMEN /KUB, 1 VIEW [id number] 20:09:00Reason for exam:->check corpack placementFINAL REPORT Abdomen , one view History: Placement of feeding tube Comparison:none Findings:Bowel gas pattern is nonspecific. Feeding tube terminates in the juxtapyloric region.Impression: Feeding tube terminates in the juxtapyloric region. Signed: Wilber Ruiz Verified Date/Time: 05/13/2019 20:09:14 Reading Location: [facility] Reading Room 08: 09 PMANTI-NUCLEAR ANTIBODY (BRINA)2019-05-13 14:31:00 Test Item Value Reference Range Comments ANTI-NUCLEAR ANTIBODY (BRINA) (BEAKER) (test Positive Negative aotr=171) Test performed by IFA method.BRINA TITER AND [id number] 14:31:00 Test Item Value Reference Range Comments BRINA TITER (BEAKER) (test rjzv=9405) :640 BRINA PATTERN (BEAKER) (test veot=0954) Homogeneous [id number] 09:36:00 Test Item Value Reference Range Comments MAGNESIUM (BEAKER) (test olms=944) 2.0 mg/dL 1.6-2.6 [id number] 09:36:00 Test Item Value Reference Range Comments PHOSPHORUS (BEAKER) (test suvg=154) 3.2 mg/dL 2.3-4.7 RAD, CHEST, 1 VIEW, NON [id number] 04:10:00Reason for exam:->EXTREMITY WEAKNESSdecreased weakness bilateral lower [...] MDReport Verified Date/Time: 05/13/2019 04:10:08 Reading Location: [address] Reading Room Electronically signed by: ASHLY SALGUERO M.D. on 06/2019 04:10 AMTSH/FREE T4 IF [id number] 03:04:00 Test Item Value Reference Range Comments THYROID STIMULATING HORMONE (BEAKER) (test 1.75 uIU/mL 0.35-4.94 efaf=580) HIV-1 ANTIGEN WITH HIV-1/2 [id number] 03:04:00 Test Item Value Reference Range Comments HIV-1 ANTIGEN WITH HIV 1\T\2 ANTIBODY (2) Nonreactive Nonreactive (BEAKER) (test tsyl=0278) BASIC METABOLIC [id number] 03:00:00 Test Item Value Reference Range Comments SODIUM (BEAKER) (test 135 meq/L 136-145 ivhd=133) POTASSIUM (BEAKER) (test 3.7 meq/L 3.5-5.1 shvj=200) CHLORIDE (BEAKER) (test 99 meq/L 98-107 zkpg=602) CO2 (BEAKER) (test 28 meq/L 22-29 qtdg=704) BLOOD UREA NITROGEN 9 mg/dL 7-21 (BEAKER) (test mphs=929) CREATININE (BEAKER) (test 0.60 mg/dL 0.57-1.25 aewu=621) GLUCOSE RANDOM (BEAKER) 104 mg/dL 70-105 (test nwkt=490) CALCIUM (BEAKER) (test 9.6 mg/dL 8.4-10.2 hneo=255) EGFR (BEAKER) (test 131 mL/min/1.73 sq m ESTIMATED GFR IS NOT xfzg=1407) ACCURATE CREATININE CLEARANCE IN PREDICTING GLOMERULAR FILTRATION RATE. ESTIMATED GFR IS NOT APPLICABLE FOR DIALYSIS PATIENTS. BLOOD GAS, [id number] 02:42:00 Test Item Value Reference Range Comments PH ARTERIAL (BEAKER) (test kzzd=097) 7.46 7.35-7.45 PCO2 ARTERIAL (BEAKER) (test gemx=488) 41 mmHg 35-45 PO2 ARTERIAL (BEAKER) (test npxf=395) 271 mmHg 80-90 O2 SATURATION ARTERIAL (BEAKER) (test voyq=119) 99.7 % 96.0-97.0 HCO3 ARTERIAL (BEAKER) (test lhbz=140) 29 mmol/L 21-29 BASE EXCESS ARTERIAL (BEAKER) (test cvlf=632) 4.2 mmol/L -2.0-3.0 PATIENT TEMPERATURE (BEAKER) (test fvuo=1380) 36.5 C FIO2 (BEAKER) (test dgxq=0519) 60.0 % IMMUNOGLOBULIN A (IGA)2019-05-13 02:42:00 Test Item Value Reference Range Comments IMMUNOGLOBULIN A (IGA) (BEAKER) (test kynu=515) 70 mg/dL 63-484 URINALYSIS W/ [id number] 02:31:00 Test Item Value Reference Range Comments COLOR (BEAKER) (test rxrf=769) Yellow CLARITY (BEAKER) (test fekl=693) Hazy SPECIFIC GRAVITY UA (BEAKER) (test umvc=624) 1.016 1.001-1.035 PH UA (BEAKER) (test yylg=500) 6.0 5.0-8.0 PROTEIN UA (BEAKER) (test sxfo=565) 20 mg/dL Negative GLUCOSE UA (BEAKER) (test tnsh=347) Negative Negative KETONES UA (BEAKER) (test sdya=706) 40 mg/dL Negative BILIRUBIN UA (BEAKER) (test qxcy=642) Negative Negative BLOOD UA (BEAKER) (test infz=910) Moderate Negative NITRITE UA (BEAKER) (test cole=274) Negative Negative LEUKOCYTE ESTERASE UA (BEAKER) (test yrzt=505) Small Negative UROBILINOGEN UA (BEAKER) (test rwkt=656) 0.2 mg/dL 0.2-1.0 RBC UA (BEAKER) (test banr=783) 84 /HPF WBC UA (BEAKER) (test ygni=439) 26 /HPF MUCUS (BEAKER) (test lagc=1840) Moderate SOURCE(BEAKER) (test paqy=8272) CBC W/PLT COUNT & AUTO [id number] 02:29:00 Test Item Value Reference Range Comments WHITE BLOOD CELL COUNT (BEAKER) (test acwd=383) 9.6 K/ L 3.5-10.5 RED BLOOD CELL COUNT (BEAKER) (test yodl=983) 3.43 M/ L 4.63-6.08 HEMOGLOBIN (BEAKER) (test uyct=443) 10.8 GM/DL 13.7-17.5 HEMATOCRIT (BEAKER) (test oday=756) 33.0 % 40.1-51.0 MEAN CORPUSCULAR VOLUME (BEAKER) (test wjht=641) 96.2 fL 79.0-92.2 MEAN CORPUSCULAR HEMOGLOBIN (BEAKER) (test 31.5 pg 25.7-32.2 sjls=021) MEAN CORPUSCULAR HEMOGLOBIN CONC (BEAKER) (test 32.7 GM/DL 32.3-36.5 qesx=135) RED CELL DISTRIBUTION WIDTH (BEAKER) (test 12.7 % 11.6-14.4 fnxb=254) PLATELET COUNT (BEAKER) (test evgy=748) 172 K/CU MM 150-450 MEAN PLATELET VOLUME (BEAKER) (test jroh=628) 10.8 fL 9.4-12.4 NUCLEATED RED BLOOD CELLS (BEAKER) (test 0 /100 WBC 0-0 xape=701) NEUTROPHILS RELATIVE PERCENT (BEAKER) (test 82 % yeyn=968) LYMPHOCYTES RELATIVE PERCENT (BEAKER) (test 9 % qlce=955) MONOCYTES RELATIVE PERCENT (BEAKER) (test 8 % ldbs=962) EOSINOPHILS RELATIVE PERCENT (BEAKER) (test 1 % vhiv=279) BASOPHILS RELATIVE PERCENT (BEAKER) (test 0 % eber=136) NEUTROPHILS ABSOLUTE COUNT (BEAKER) (test 7.81 K/ L 1.78-5.38 gnat=933) LYMPHOCYTES ABSOLUTE COUNT (BEAKER) (test 0.90 K/ L 1.32-3.57 ccbv=146) MONOCYTES ABSOLUTE COUNT (BEAKER) (test 0.74 K/ L 0.30-0.82 qlvu=915) EOSINOPHILS ABSOLUTE COUNT (BEAKER) (test 0.08 K/ L 0.04-0.54 ymwy=107) BASOPHILS ABSOLUTE COUNT (BEAKER) (test 0.02 K/ L 0.01-0.08 ourc=102) IMMATURE GRANULOCYTES-RELATIVE PERCENT (BEAKER) 0 % 0-1 (test ioqv=5634)
--- OUTSIDE RECORDS SUMMARY | 2019-05-23 15:25 | XMS REPORT | Clinical Summary ---
:1940 Author Organization [facility] Address [address] [place] [address] Care Team Providers Name Role Phone Unavailable Primary Care Provider Unavailable Allergies No Known Allergies Medications Medication Sig Dispensed Refills Start Date End Date Status timolol (BETIMOL) 0.5 1 drop 2 (two) 0 Active % ophthalmic solution times daily. cetirizine (ZYRTEC) 10 Take 10 mg by 0 Active MG tablet mouth daily. docusate sodium Take 1 capsule 10 capsule 0 05/18/2019 05/28/2019 Active (COLACE) 100 MG (100 mg total) capsule by mouth 2 (two) times daily for 10 days. polyethylene glycol Take 17 g by 14 each 0 05/18/2019 Active (GLYCOLAX) 17 gram mouth daily as packet needed. amoxicillin-clavulanat Take 1 tablet 12 tablet 0 05/20/2019 05/26/2019 Active e (AUGMENTIN) 875-125 by mouth every mg per tablet 12 (twelve) hours for 6 days. Lactobacillus Take 1 tablet 0 05/20/2019 05/26/2019 Active acidoph-L.bulgar by mouth 2 (FLORANEX) 1 million (two) times cell Tab per tablet daily for 6 days. 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/12/2019 Generalized weakness 05/12/2019 Encounters Date Type Specialty Care Team Description 05/18/2019 Outside Orders Central Scheduling McT, Provider Neuropathy ( Primary Dx); Not In System Myelopathy (HCC) 05/13/2019 Travel 05/12/2019 - [facility] Internal Lanette Sosa Generalized weakness ( Primary Dx); 05/20/2019 Encounter Medicine MD Zhane Acute respiratory failure with hypoxia (HCC); Jenna Granado Neuromuscular disease ([facility]); MD Hoa Dysphagia, unspecified type; Maverick Smith, Severe protein-calorie malnutrition (Short: less than 60 % of standard weight) ([facility]); Acute cystitis without hematuria 05/12/2019 Hospital Maverick Smith, Encounter MD after 05/22/2018 Social History Tobacco Use Types Packs/Day Years [...] Plan of Treatment Not on file Procedures Procedure Name Priority Date/Time Associated Comments Diagnosis REPORT OF PROCEDURE - 05/23/2019 3:00 ENDOSCOPY SCAN PM CDT RHYTHM STRIP - SCAN 05/23/2019 3:00 PM CDT XR CHEST 1 VIEW LA 05/19/2019 10:16 [...] procedure are in the results section. after 05/22/2018 Results EKG-SCANNED (05/23/2019 3:00 PM CDT) Narrative Performed At RHYTHM STRIP - SCAN (05/23/2019 3:00 PM CDT) Narrative Performed At XR chest 1 view portable / bedside (05/19/2019 10:16 AM CDT)Only the most recent of4 resultswithin the time period is included. Specimen Narrative Performed At FINAL REPORT [facility] RAD, CHEST, 1 VIEW, NON DEPT INDICATION: cough COMPARISON: May 15, 2019 FINDINGS: Portable frontal view of the chest. IMPRESSION: Support Lines: None. Lungs and pleura: Developing consolidation in the right infrahilar region suggesting developing pneumonia. No pneumothorax. Heart and mediastinum: Stable contours. Additional findings: None. Signed: JR Garrison Robert MD Report Verified Date/Time:05/19/2019 10:33:37 Reading Location: [facility] Radiology Reading Room Procedure Note Interface, External [...] Stable contours. Additional findings: None. Signed: JR Bladimir, Femi TOBIN Report Verified Date/Time: 05/19/2019 10:33:37 Reading Location: [facility] Radiology Reading Room Performing Organization Address City/State/Zipcode Phone Number GE RIS CBC with platelet count + automated diff (05/19/2019 4:17 AM CDT)Only the most recent of3 resultswithin the time period is included. WBC 12.0 (H) 3.5 - 10.5 K/L [facility] RBC 3.77 (L) 4.63 - 6.08 M/L [facility] Hemoglobin 12.0 (L) 13.7 - 17.5 GM/DL [facility] Hematocrit 36.6 (L) 40.1 - 51.0 % [facility] MCV 97.1 (H) 79.0 - 92.2 fL [facility] MCH 31.8 25.7 - 32.2 pg [facility] MCHC 32.8 32.3 - 36.5 GM/DL [facility] RDW 12.5 11.6 - 14.4 % [facility] Platelets 244 150 - 450 K/CU MM [facility] MPV 10.4 9.4 - 12.4 fL [facility] nRBC 0 0 - 0 /100 WBC [facility] % Neutros 88 % [facility] % Lymphs 7 % [facility] % Monos 5 % [facility] % Eos 0 % [facility] % Baso 0 % [facility] # Neutros 10.56 (H) 1.78 - 5.38 K/L [facility] # Lymphs 0.78 (L) 1.32 - 3.57 K/L [facility] # Monos 0.57 0.30 - 0.82 K/L [facility] # Eos 0.04 0.04 - 0.54 K/L [facility] # Baso 0.03 0.01 - 0.08 K/L [facility] Immature 1 0 - 1 % [facility] Specimen Blood Performing Organization Address City/State/Zipcode Phone Number [facility] [address] [place] [address] [phone] CENTER Basic Metabolic Panel (05/19/2019 4:17 AM CDT)Only the most recent of3 resultswithin the time period is included. Sodium 136 136 - 145 meq/L [facility] Potassium 4.0 3.5 - 5.1 meq/L [facility] Chloride 96 (L) 98 - 107 meq/L [facility] CO2 35 (H) 22 - 29 meq/L [facility] BUN 10 7 - 21 mg/dL [facility] Creatinine 0.56 (L) 0.57 - 1.25 mg/dL [facility] Glucose 92 70 - 105 mg/dL [facility] Calcium 10.0 8.4 - 10.2 mg/dL [facility] EGFR 141Comment: ESTIMATED GFR IS mL/min/1.73 sq m [facility] NOT ACCURATE CREATININE [facility] CENTER CLEARANCE IN PREDICTING GLOMERULAR FILTRATION RATE. ESTIMATED GFR IS NOT APPLICABLE FOR DIALYSIS PATIENTS. Specimen Blood Performing Organization Address City/State/Zipcode Phone Number [address] [address] CENTER POC-Glucose meter (05/15/2019 5:13 PM CDT)Only the most recent of2 resultswithin the time period is included. POC-Glucose Meter 103Comment: TESTED AT 70 - 110 mg/dL [address] [address] Specimen Blood Performing Organization Address City/[facility] Phone Number [address] [address] CENTER Phosphorus (05/14/2019 4:22 AM CDT)Only the most recent of2 resultswithin the time period is included. Phosphorus 2.9 2.3 - 4.7 mg/dL [facility] Specimen Blood Performing Organization Address [facility] Phone Number [address] [address] [phone] CENTER Magnesium (05/14/2019 4:22 AM CDT)Only the most recent of2 resultswithin the time period is included. Magnesium 1.9 1.6 - 2.6 mg/dL [facility] Specimen Blood Performing Organization Address [facility] Phone Number [address] [address] [phone] CENTER Blood gas, venous (05/14/2019 4:22 AM CDT) pH, [place] 7.44 (H) 7.32 - 7.42 [facility] pCO2, [place] 41 41 - 51 mmHg [facility] pO2, [place] 117 (H) 25 - 40 mmHg [facility] O2 Sat, [place] 98.4 (H) 40.0 - 70.0 % [facility] HCO3, [place] 27 21 - 29 mmol/L [facility] Base Excess, [place] 2.5 -2.0 - 3.0 mmol/L [facility] Patient Temperature 36.7 C [facility] FIO2 30.0 % [facility] Specimen Blood Performing Organization Address City/[facility]/Zipcode Phone Number [facility] [address] [place] [address] [phone] CENTER XR abdomen / KUB 1 view (05/13/2019 5:03 PM CDT) Specimen Narrative Performed At FINAL REPORT RIS Abdomen , one view History: Placement of feeding tube Comparison:none Findings: Bowel gas pattern is nonspecific.Feeding tube terminates in the juxtapyloric region. Impression: Feeding tube terminates in the juxtapyloric region. Signed: Wilber Ruiz MD Report Verified Date/Time:05/13/2019 20:09:14 Reading Location: [facility] Reading Room Procedure Note Interface, External Ris In - 05/13/2019 8:11 PM CDT FINAL REPORT Abdomen , one view History: Placement of feeding tube Comparison:none Findings: Bowel gas pattern is nonspecific. Feeding tube terminates in the juxtapyloric region. Impression: Feeding tube terminates in the juxtapyloric region. Signed: Wilber Ruiz MD Report Verified Date/Time: 05/13/2019 20:09:14 Reading Location: [facility] Reading Room Performing Organization Address City/State/Zipcode Phone Number [facility] Blood gas, arterial (05/13/2019 2:18 AM CDT) pH, Arterial 7.46 (H) 7.35 - 7.45 [facility] pCO2, Arterial 41 35 - 45 mmHg [facility] pO2, Arterial 271 (H) 80 - 90 mmHg [facility] O2 Sat, Arterial 99.7 (H) 96.0 - 97.0 % [facility] HCO3, Arterial 29 21 - 29 mmol/L [facility] Base Excess, Arterial 4.2 (H) -2.0 - 3.0 mmol/L [facility] Patient Temperature 36.5 C [facility] FIO2 60.0 % [facility] Specimen Blood, Arterial Performing Organization Address City/[facility]/Zipcode Phone Number [address] [address] [place] Urinalysis w/Microscopic (05/13/2019 2:08 AM CDT) Color, UA Yellow [facility] Clarity, UA Hazy [facility] Specific [place], UA 1.016 1.001 - 1.035 [facility] pH, UA 6.0 5.0 - 8.0 [facility] Protein, UA 20 mg/dL (A) Negative [facility] Glucose, UA Negative Negative [facility] Ketones, UA 40 mg/dL (A) Negative [facility] Bilirubin, UA Negative Negative [facility] Blood, UA Moderate (A) Negative [facility] Nitrite, UA Negative Negative [facility] Leukocytes, UA Small (A) Negative [facility] Urobilinogen, UA 0.2 0.2 - 1.0 mg/dL [facility] RBC, UA 84 /HPF [facility] WBC, UA 26 /HPF [facility] Mucus Moderate [facility] Specimen Source [facility] Specimen Urine Performing Organization Address City/State/Zipcode Phone Number [facility] [address] [place] [address] [place] TSH/Free T4 If Indicated (05/13/2019 1:53 AM CDT) TSH 1.75 0.35 - 4.94 uIU/mL [facility] Specimen Blood Performing Organization Address [facility] Phone Number [address] [address] [place] HIV-1 Antigen with HIV-1/2 Antibody (05/13/2019 1:53 AM CDT) HIV-1 Antigen with HIV 1&2 Nonreactive Nonreactive [facility] Antibody [facility] Specimen Blood Performing Organization Address [facility] Phone Number [address] [address] [phone] [place] BRINA Titer & Pattern (05/13/2019 1:53 AM CDT) BRINA Titer 1:640 [facility] BRINA Pattern Homogeneous [facility] Specimen Blood Performing Organization Address [facility] Phone Number [address] [address] [phone] [place] Anti-Nuclear Antibody (BRINA) (05/13/2019 1:53 AM CDT) BRINA Positive (A) Negative [facility] Specimen Blood Narrative Performed At Test performed by IFA method. [facility] Performing Organization Address [facility] Phone Number [address] [address] [place] Immunoglobulin A (IgA) (05/13/2019 1:53 AM CDT) IgA 70 63 - 484 mg/dL [facility] Specimen Blood Performing Organization Address [facility] Phone Number [address] [address] [phone] CENTER CRITICAL CARE (05/12/2019 9:03 PM CDT) Narrative [...] studies and review of old charts. after 05/22/2018 Insurance Payer Benefit Plan / Subscriber ID Type Phone Address Group MEDICARE MEDICARE A B xxxxxxxxxxx Medicare BLUE CROSS/BLUE BCBS INDEMNITY [place] xxxxxxxxxxxx O [phone] [address] [place] [address] Advance Directives For more information, please contact:[address] [phone] Code Status Date Activated Date Inactivated Comments Partial Code 05/13/2019 4:42 PM 05/21/2019 12:30 AM This code status was determined by: Patient Drug Protocol After Arrest Occurs? Yes Mechanical Ventilation with Intubation? No Bag/Mask? No Internal/External Pacemaker? No Transfer to Critical Care? Yes Chest Compressions? No Defibrillation/Cardioversion? No Full Code 05/12/2019 10:29 PM 05/13/2019 4:42 PM This code status was determined by: Patient
[2019-05-23] MEDS ORDERED: SCOPOLAMINE HYDROBROMIDE PATCH TD PRN (15:36)
[2019-05-23] MEDS ORDERED: ACETAMINOPHEN 650MG/RECT SUPP PR PRN (15:36)
[2019-05-23] MEDS ORDERED: ONDANSETRON 4 MG/2 ML VIAL IV PRN (15:36)
[2019-05-23] MEDS ORDERED: MORPHINE 2 MG/ML SYR IV PRN (15:37)
[2019-05-23] MEDS ORDERED: LORazepam 2 MG/ML VIAL IV PRN (15:38)
[2019-05-23] MEDS: MORPHINE 2 MG/ML SYR IV SCH ×2 (17:00→21:00)
[2019-05-23] MEDS: LORazepam 2 MG/ML VIAL IV SCH ×2 (17:00→22:06)
[2019-05-24] MEDS: MORPHINE 2 MG/ML SYR IV SCH ×5 (01:00→17:00)
[2019-05-24] MEDS: LORazepam 2 MG/ML VIAL IV SCH ×5 (01:00→17:00)
== END 2019-05-24 19:47 | disposition expired | DRG 951 ==
LOC: 4TH 15:18
PROVIDERS: ADMIT Internal Medicine Hematology & Oncology; ATTEND Internal Medicine Hematology & Oncology
DX: Z51.5 Encounter for palliative care (principal); J96.90 Respiratory failure, unspecified, unspecified whether with hypoxia or hypercapnia; Z66 Do not resuscitate; G70.9 Myoneural disorder, unspecified
CPT/HCPCS: 94660; J2270